=== PATIENT | male | born 1990 | race Asian ===

== ENCOUNTER → 2016-12-04 | Outpatient (CLI) | payer OTHER ==
[2016-12-04 16:14] LABS: BASO % 0.3 % (0.0-1.0); EOS # 0.1 K/mm3 (0.0-0.50); EOS % 0.7 % (0.0-3.0); LARGE UNSTAINED CELL # 0.1 K/mm3 (0.0-0.4); LYMPH % 14.2 % (24.0-44.0); MEAN CORPUSCULAR HEMOGLOBIN 27.6 pg (27.0-33.0); MEAN CORPUSCULAR VOLUME 83.7 fl (80.0-96.0); MONO # 0.6 K/mm3 (0.0-0.8); MONO % 4.2 % (0.0-5.0); NEUTROPHILS # 10.5 K/mm3 (1.8-7.7); NEUTROPHILS % 79.6 % (36.0-66.0); PLATELET COUNT, AUTOMATED 407 k/mm3 (150-450); WHITE BLOOD COUNT 13.2 K/mm3 (4.0-10.0)
[2016-12-04 16:37] LABS: ALBUMIN 4.8 GM/DL (3.2-5.2); ALBUMIN/GLOBULIN RATIO 1.37 (1.00-1.93); ALKALINE PHOSPHATASE 95 U/L (45-117); ALT/SGPT 92 U/L (12-78); ANION GAP 10 MEQ/L (8-16); AST/SGOT 42 U/L (15-37); BILIRUBIN,TOTAL 0.4 MG/DL (0.2-1.0); BLOOD UREA NITROGEN 10 MG/DL (7-18); CALCIUM LEVEL 11.3 MG/DL (8.5-10.1); CARBON DIOXIDE LEVEL 30 MEQ/L (21-32); CHLORIDE LEVEL 101 MEQ/L (98-107); CHOLESTEROL LEVEL 199 MG/DL (<200); CREATININE FOR GFR 1.13 MG/DL (0.70-1.30); GLOMERULAR FILTRATION RATE > 60.0 (>60); GLUCOSE, FASTING 94 MG/DL (70-105); POTASSIUM SERUM 4.3 MEQ/L (3.5-5.1); SODIUM LEVEL 141 MEQ/L (136-145); TOTAL PROTEIN 8.3 GM/DL (6.4-8.2); TRIGLYCERIDES LEVEL 346 MG/DL (<150)
== END ==
LOC: M LAB 15:15
PROVIDERS: ATTEND Nurse Practitioner Pediatrics
DX: F31.2 Bipolar disorder, current episode manic severe with psychotic features (principal)

== ENCOUNTER → 2017-01-05 | Outpatient (CLI) | payer OTHER ==
[2017-01-05 12:53] LABS: BASO % 0.2 % (0.0-1.0); EOS # 0.1 K/mm3 (0.0-0.50); EOS % 1.4 % (0.0-3.0); LARGE UNSTAINED CELL # 0.1 K/mm3 (0.0-0.4); LARGE UNSTAINED CELL % 0.9 % (0.0-4.0); LYMPH # 1.5 K/mm3 (1.5-6.5); LYMPH % 15.1 % (24.0-44.0); MEAN CORPUSCULAR HGB CONC 32.8 g/dl (32.0-36.5); MEAN CORPUSCULAR VOLUME 85.2 fl (80.0-96.0); MONO # 0.4 K/mm3 (0.0-0.8); MONO % 4.4 % (0.0-5.0); NEUTROPHILS # 7.2 K/mm3 (1.8-7.7); NEUTROPHILS % 77.9 % (36.0-66.0); PLATELET COUNT, AUTOMATED 357 k/mm3 (150-450); RED CELL DISTRIBUTION WIDTH 13.3 % (11.5-14.5); WHITE BLOOD COUNT 9.3 K/mm3 (4.0-10.0)
[2017-01-05 13:59] LABS: ALBUMIN 4.8 GM/DL (3.2-5.2); ALBUMIN/GLOBULIN RATIO 1.66 (1.00-1.93); ALKALINE PHOSPHATASE 81 U/L (45-117); ALT/SGPT 39 U/L (12-78); ANION GAP 8 MEQ/L (8-16); AST/SGOT 34 U/L (15-37); BILIRUBIN,TOTAL 0.4 MG/DL (0.2-1.0); BLOOD UREA NITROGEN 9 MG/DL (7-18); CALCIUM LEVEL 10.5 MG/DL (8.5-10.1); CARBON DIOXIDE LEVEL 30 MEQ/L (21-32); CHLORIDE LEVEL 103 MEQ/L (98-107); CHOLESTEROL LEVEL 131 MG/DL (<200); CREATININE FOR GFR 1.09 MG/DL (0.70-1.30); GLOMERULAR FILTRATION RATE > 60.0 (>60); GLUCOSE, FASTING 98 MG/DL (70-105); POTASSIUM SERUM 4.3 MEQ/L (3.5-5.1); SODIUM LEVEL 141 MEQ/L (136-145); TOTAL PROTEIN 7.7 GM/DL (6.4-8.2); TRIGLYCERIDES LEVEL 111 MG/DL (<150)
== END ==
LOC: M LAB 12:28
PROVIDERS: ATTEND Nurse Practitioner Pediatrics
DX: F31.2 Bipolar disorder, current episode manic severe with psychotic features (principal); J45.40 Moderate persistent asthma, uncomplicated; I10 Essential (primary) hypertension

== ENCOUNTER 2017-01-28 14:09 | Inpatient (IN) | payer OTHER ==
[~2017-01-28] VITALS: Ht 190.5 cm; Wt 104.5 kg
[2017-01-28] MEDS ORDERED: ZIPR40CA11 PO (15:37)
[2017-01-28] MEDS ORDERED: MONT10TA2 PO (15:37)
[2017-01-28] MEDS ORDERED: METH4PACK PO (15:37)
[2017-01-28] MEDS ORDERED: CHLO0.124 MT (15:37)
[2017-01-28] MEDS ORDERED: PERC5TAB6 PO (15:37)
[2017-01-28] MEDS ORDERED: METF-415 PO (15:37)
[2017-01-28] MEDS ORDERED: ALBU17IN INH (15:37)
[2017-01-28] MEDS ORDERED: LAMO200T54 PO (15:37)
[2017-01-28] MEDS ORDERED: MEMA1TAB PO (15:37)
[2017-01-28] MEDS ORDERED: IBUP80TA PO (15:37)
[2017-01-28] MEDS ORDERED: PREVINJ2 IM (15:42)
[2017-01-28 16:10] LABS: METHADONE URINE NEGATIVE (NEGATIVE)
[2017-01-28 17:00] LABS: MEAN CORPUSCULAR HGB CONC 33.2 g/dl (32.0-36.5); MEAN CORPUSCULAR VOLUME 84.4 fl (80.0-96.0); RED CELL DISTRIBUTION WIDTH 13.3 % (11.5-14.5); WHITE BLOOD COUNT 12.1 K/mm3 (4.0-10.0)
[2017-01-28 17:25] LABS: ALBUMIN 4.7 GM/DL (3.2-5.2); ALBUMIN/GLOBULIN RATIO 1.62 (1.00-1.93); ALKALINE PHOSPHATASE 74 U/L (45-117); ALT/SGPT 37 U/L (12-78); ANION GAP 9 MEQ/L (8-16); AST/SGOT 24 U/L (15-37); BILIRUBIN,DIRECT 0.2 MG/DL (0.0-0.2); BILIRUBIN,TOTAL 0.7 MG/DL (0.2-1.0); BLOOD UREA NITROGEN 14 MG/DL (7-18); CALCIUM LEVEL 9.9 MG/DL (8.5-10.1); CARBON DIOXIDE LEVEL 28 MEQ/L (21-32); CHLORIDE LEVEL 103 MEQ/L (98-107); CREATININE FOR GFR 0.91 MG/DL (0.70-1.30); GLOMERULAR FILTRATION RATE > 60.0 (>60); GLUCOSE, FASTING 94 MG/DL (70-105); POTASSIUM SERUM 4.1 MEQ/L (3.5-5.1); SODIUM LEVEL 140 MEQ/L (136-145); TOTAL PROTEIN 7.6 GM/DL (6.4-8.2)
[2017-01-28] MEDS ORDERED: INVE6TAB2 PO (18:18)
[2017-01-28] MEDS ORDERED: DRIS50002 PO (18:21)
[2017-01-28] MEDS ORDERED: VRAY4.5C PO (18:21)
[2017-01-28] MEDS ORDERED: SILD50TA PO (18:21)
[2017-01-28] MEDS ORDERED: FLUT11IN INH (18:21)
[2017-01-28] MEDS ORDERED: LISI10TA4 PO (18:21)
[2017-01-28 20:58] VITALS: BP 163/92
[2017-01-28] MEDS ORDERED: MAALOX 30 ML SUSP *UDC PO PRN (21:15)
[2017-01-28] MEDS ORDERED: MOM 30ML SUSPENSION UDC PO PRN (21:15)
[2017-01-29 06:09] VITALS: BP 150/81
[2017-01-29] MEDS ORDERED: PALIPERIDONE 6 MG ER TAB (INVEGA) PO SCH (09:00)
[2017-01-29] MEDS: ACETAMINOPHEN TAB 650MG DOSE (2X325MG) PO PRN (09:57)
--- NOTE | 2017-01-29 10:17 | HPEPDOC ---
Medical History and Physical Date of Admission Jan 28, 2017 at 18:19 History and Physical PCP: Tara Sutherland NP ATTENDING: Dr. Branden Hopkins HPI: 26yoM admitted to [facility] for bipolar disorder, being medically examined today. No acute medical complaints today. Denies any fevers, chills, weakness, fatigue, GILBERT, CP, SOB, cough, palpitations, abdominal pain, N/V/D or changes in bowel or bladder habits. PMHx: Asthma Hypertension Vitamin D deficiency Learning disability. 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 Unexpected deaths due to medical reasons: None. ROS: As noted in HPI, otherwise 11pt ROS of systems reviewed and unremarkable. PE: GEN: 26yoM, appears stated age. Well-nourished, well developed. No acute distress. Alert and oriented x 3. Anxious, asking about discharge. Slow to respond to some questions. HEENT: Normocephalic, atraumatic. Pupils are equal, round, and reactive to light. Extraocular movements are intact. No nystagmus appreciated. Sclera are nonicteric. Conjunctiva without injection. Nose midline. Nasal turbinates without bogginess. EACs both patent BL. TMs both visualized and casas with good cone of light, no bulging or erythema. No facial asymmetry. Moist mucous membranes. Dentition fair. Pharynx pink and moist, no cobblestoning. Neck supple , trachea midline. No lymphadenopathy or thyromegaly appreciated. CHEST: Regular rate and rhythm, +S1, +S2 LUNGS: Clear to auscultation bilaterally. No wheezes, rales, or rhonchi. Breathing appears symmetric and easy. Patient is speaking in full sentences. No accessory muscle use. ABD: Round, soft, non-tender, non-distended. +Bowel sounds throughout. No rebound or guarding. No costovertebral angle tenderness. EXT: Pulses 2+ bilaterally dorsalis pedis and radial. No lower extremity edema appreciated. SKIN: [place], dry, warm. Capillary refill <2sec. No rashes. NEURO: Alert and oriented x 3. Cranial nerves III-XII are intact. No focal deficits appreciated. EKG: pending. A&P: 26yoM admitted to [facility] for bipolar disorder 1. Psych. Plan per Psychiatry. Obtain baseline EKG to assure the safety of psychiatric medications as they can prolong the QT interval. 2. Asthma. Continue Singulair 10 mg daily. Continue Flovent HFA 110 g 2 puffs twice a day. Continue albuterol 2 puffs every 4 hours as needed. Patient follows with Dr. Velasquez as an outpatient. 3. Hypertension. Continue lisinopril 10 mg daily with hold parameters. 4. Follow up with PCP on discharge. 5. Vitamin D deficiency. Continue vitamin D supplement. Vitamin D level 01/05/17 60.1. 6. Leukocytosis. Possibly steroid effect as patient is finishing course of methylprednisolone for wisdom teeth extraction. Patient is asymptomatic. Afebrile. Recheck CBC. 7. Recent wisdom teeth extraction. Healing, no signs of infection at this time. Patient will finish last 2 days of methylprednisolone Dosepak. Continue with chlorhexidine 15 mL SS twice a day. Ibuprofen 800 mg 3 times a day as needed, oxycodone 5/325 one tablet every 6 hours as needed for pain. 8.Staff member Jose present throughout exam. Vital Signs Vital Signs Label Value Date Time Patient Temperature 98.5 degrees F 01/29/17 06 Temperature Source Core 01/29/17608 Pulse 101 01/29/17608 Respiratory Rate 16 bpm 01/29/17608 Pulse 92 01/28/172057 Blood Pressure Assessment 150/81 (104) 01/29/17 06 Bedside Pulse Oximetry 97 % 01/28/172057 Item Value Date Time Oxygen Delivery Method Room Air 01/28/172057 Laboratory Data Labs 24H Laboratory Tests 2 01/28/17 14:56: Urine Amphetamines Screen NEGATIVE, Urine Benzodiazepines Screen NEGATIVE, Urine Opiates Screen NEGATIVE, Urine Barbiturates Screen NEGATIVE, Urine Cannabinoids Screen POSITIVEH, Urine Cocaine Metabolite Screen NEGATIVE, Urine Methadone Screen NEGATIVE, Urine Phencyclidine Screen NEGATIVE 01/28/17 16:40: Acetaminophen Level < 2.0L, Aspartate Amino Transf (AST/SGOT) 24, Alanine Aminotransferase (ALT/SGPT) 37, Alkaline Phosphatase 74, Total Bilirubin 0.7, Direct Bilirubin 0.2, Albumin 4.7, Albumin/Globulin Ratio 1.62, Anion Gap 9, Calcium Level 9.9, Ethyl Alcohol Level < 0.003, Glomerular Filtration Rate > 60.0, Salicylates Level < 1.7L, Thyroid Stimulating Hormone (TSH) 0.921, Total Protein 7.6 CBC/BMP Laboratory Tests 01/28/17 16:40 Red Blood Count 5.47, Mean Corpuscular Volume 84.4, Mean Corpuscular Hemoglobin 28.0, Mean Corpuscular Hemoglobin Concent 33.2, Red Cell Distribution Width 13.3 Home Medications Scheduled (Lamotrigine ER) 200 Mg Tab 200 MG PO DAILY (Vraylar) 4.5 Mg Cap 4.5 MG PO DAILY Chlorhexidine Gluconate (Chlorhexadine Gluconate) 0.12 % Nancie 15 ML MT BID Fluticasone Propionate (Flovent Hfa 110 MCG) 120 Puff/12 Gm Aero 2 PUFF INH BID Lisinopril (Lisinopril) 10 Mg Tab 10 MG PO DAILY Memantine Hydrochloride (Memantine HCl) 5 Mg Tab 5 MG PO BID Metformin Hydrochloride (Metformin HCl ER) 1,000 Mg Tab 1,000 MG PO QPM Methylprednisolone (Methylprednisolone Dose P) 21 Ea Dspk 4 MG PO ASDIRECTED DOSEPAK TAPER DIRECTED, STARTED 01/24 FOR 6 DAYS Montelukast Sodium (Montelukast Sodium) 10 Mg Tab 10 MG PO QHS Paliperidone (Invega) 6 Mg Tab 6 MG PO QAM Vitamin D (Drisdol) 50,000 Unit Cap 50,000 UNIT PO QWEEK Ziprasidone Hydrochloride (Ziprasidone HCl) 40 Mg Cap 40 MG PO BID Scheduled PRN Albuterol Sulfate (Ventolin Hfa) 200 Puff/8 Gm Aers 2 PUFF INH QID PRN PRN SOB/ WHEEZING Ibuprofen (Ibuprofen) 800 Mg Tab 800 MG PO Q8H PRN PRN PAIN Oxycodone/Acetaminophen (Percocet 5-325 mg) 1 Tab Tab 1 TAB PO Q6H PRN PRN PAIN Sildenafil Citrate (Viagra) 50 Mg Tab 50 MG PO PRN ERECTILE DYSFUNCTION Allergies Coded Allergies: No Known Allergies (Unverified , 01/28/17) Echo Wiggins Jan 29, 2017 10:16
[2017-01-29] MEDS: LISINOPRIL 10 MG TAB PO SCH (12:50)
[2017-01-29] MEDS: methylPREDNISolone 4 MG TAB PO SCH ×2 (12:50→20:45)
[2017-01-29] MEDS: CHLORHEXIDINE GLUCONATE 0.12 % 15ML UDC (PERIDEX ORAL RINSE) MT SCH ×2 (12:51→20:42)
[2017-01-29] MEDS: FLUTICASONE HFA 110 MCG 12 GM INHALER (FLOVENT) INH SCH ×2 (12:56→20:45)
--- NOTE | 2017-01-29 13:54 | MHHPE ---
DATE OF ADMISSION: 01/28/2017 Storm Hernandez is a 26-year-old male who lives with his 67-year-old mother in [place]. Apparently he states he was "shooting at the snow with a paint ball gun." He states his medical problems have been asthma, vitamin D deficiency, high blood pressure and past surgery on his leg for club foot. He states it was his right leg, but he is pointing to his left leg. He states the muscles have not developed as well in that leg. PSYCHIATRIC HISTORY: The patient says he sees two people for psychiatric care, a Dr. Sandoval at [facility] and Susan Calderon LPN. He states he does not know his medications. We reviewed his medications and it is unclear which ones are active and which ones have been discontinued. He states the reason he sought psychiatric help was that he had a problem with bills and child support. He has three children from three different women. EDUCATION HISTORY: He has a GED. 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 LEGAL HISTORY: He states he has numerous misdemeanors regarding arguing with the mothers' of his children about bills and seeing his children. NEUROLOGIC HISTORY: Negative. He states he has an astigmatism. DRUG HISTORY: Negative. ALCOHOL HISTORY: Negative. He denies hallucinations, delusions, obsessions, compulsions and phobias. Speech is normal. No obvious thought disorder. Content iss mostly denial and minimization. No loose associations. Judgement and insight are poor. Poor memory for medications. Mood neutral, affect neutral. He states his mother brought him here, but then states his mother wants to bring him home. Information from emergency room mental health evaluation by Tanisha Dukes, Fast Food Supervisor, states "the patient was reportedly outside with a paint ball gun, complains of it being mistaken for a real gun as he went up and down the streets. Reported to be decompensating, paranoid and noncompliant with medications, with extreme anger outbursts at home. The patient complained he was just having a bad day. He did talk about having frequent nightmares. Complains of his medications not working and causing him to gain weight. He appeared guarded and stating in the emergency room that everything was fine. He stated medications caused him to gain weight and he does not like to take them. [facility] Apparently, his mother is older and supported the patient and has cared for him for years. She reports that she is afraid of the patient due to his behaviors, which include breaking things, punching pino. He has changed his cell phone number several times because he believes people are after him. He does not admit to paranoid ideation or persecutory ideas and appears as he did in the emergency room, to minimize his symptoms. It was unclear from the medication list which ones are active and which have been cancelled and we will be getting information from Susan Antoniobeverly as to what medications he is actively taking. DIAGNOSIS: Rule out bipolar disorder with psychotic features. Plan. Continue Invega and possibly raise dose. Seek further information. MTDD
[2017-01-29 18:00] VITALS: BP 142/88
[2017-01-29] MEDS: MONTELUKAST 10 MG TAB PO SCH (20:44)
[2017-01-29] MEDS: metFORMIN XR 500MG TAB *GLUCOPHAGE XR PO SCH (20:46)
[2017-01-29] MEDS: PERCOCET 5MG/325MG TAB PO PRN (20:49)
[2017-01-30] MEDS: IBUPROFEN 800 MG TAB PO PRN (06:12)
[2017-01-30 06:32] VITALS: BP 129/75
[2017-01-30 07:24] LABS: MEAN CORPUSCULAR HEMOGLOBIN 28.2 pg (27.0-33.0); MEAN CORPUSCULAR HGB CONC 33.2 g/dl (32.0-36.5); MEAN CORPUSCULAR VOLUME 84.8 fl (80.0-96.0); RED CELL DISTRIBUTION WIDTH 13.4 % (11.5-14.5); WHITE BLOOD COUNT 11.1 K/mm3 (4.0-10.0)
[2017-01-30] MEDS ORDERED: methylPREDNISolone 4 MG TAB PO ONE (07:30)
[2017-01-30] MEDS: FLUTICASONE HFA 110 MCG 12 GM INHALER (FLOVENT) INH SCH ×2 (08:20→21:21)
[2017-01-30] MEDS: LISINOPRIL 10 MG TAB PO SCH (08:21)
[2017-01-30] MEDS: ALBUTEROL 90 MCG/ACT 8GM HFA INHALER INH PRN ×2 (08:22→17:56)
[2017-01-30] MEDS ORDERED: VITAMIN D 50,000 UNITS CAPSULE (ERGOCALCIFEROL 1.25MG) PO SCH (09:00)
[2017-01-30] MEDS: PALIPERIDONE 3 MG ER TAB (INVEGA) PO SCH (09:16)
[2017-01-30] MEDS: CHLORHEXIDINE GLUCONATE 0.12 % 15ML UDC (PERIDEX ORAL RINSE) MT SCH ×2 (09:17→21:21)
--- NOTE | 2017-01-30 09:42 | IPN ---
DATE: 01/30/2017 Storm Hernandez is a 26-year-old male who lives with his 67-year-old mother in [place]. According to him yesterday, his only difficulty was the shooting at the snow with a paint ball gun. Further information from family and emergency room indicates that he was threatening and yelling at his mother and possibly, though he does not admit it, breaking things in the household. His mother was so frightened that she moved out of the house. He has a long history of being treated for bipolar disorder. He has a history of multiple antipsychotic medications and injections. He is presently on paliperidone (Invega) 6 mg. I have increased it to 9 mg. The patient does not know his medications. Interestingly, he was also prescribed presently Lamictal and Namenda, which is an anti dementia medication. Past history of use of Geodon, Vraylar, Invega Sustenna, Latuda, Abilify. The diagnosis that he has cared has been a bipolar 1 disorder with most recently manic episodes. The patient agreed with me, after much encouragement and multiple questions, in fact, that he looses his temper at home and he has been treated for "getting mad." I informed we were increasing his Invega to 9mg. I have discussed his case with discharge planning that we need more information from his therapist as to a superintendent marine oil terminal plan for this gentleman. MENTAL STATUS: Speech was normal. Thought processes showed no abnormalities. No loose associations. No psychotic thoughts. Judgment and insight poor. Orientation is full. Remote memory is not intact. The patient does not know his medications. Attention and concentration is fair. No disturbances of language. Full fund of knowledge. Mood is neutral. Affect is neutral. PLAN: At this time, I have increased his Invega to 9 mg and will be discussing further his longer term treatment. He will be restarted on his Lamictal. MTDD
[2017-01-30 18:00] VITALS: BP 140/88
[2017-01-30] MEDS: PERCOCET 5MG/325MG TAB PO PRN (19:23)
[2017-01-30] MEDS: MONTELUKAST 10 MG TAB PO SCH (21:22)
[2017-01-30] MEDS: lamoTRIgine 100MG TAB PO SCH (21:22)
[2017-01-30] MEDS: metFORMIN XR 500MG TAB *GLUCOPHAGE XR PO SCH (21:22)
--- NOTE | 2017-01-30 22:17 | ECGEPIP ---
Stationary ECG Study [facility] Test Date: 2017-01-29 Pat Name: ALDO YIP Department: Room: [place] [address] Gender: M [employer] Route Aide: : 1990 Requested By: Echo Wiggins Order Number: [id number] Reading MD: Delroy Griggs Measurements Intervals [place] Rate: 85 P: 56 NM: 161 QRS: 50 QRSD: 102 T: 34 QT: 349 QTc: 415 Interpretive Statements Normal sinus rhythm Normal EKG Comparison tracing not on file Electronically Signed On 01-30-2017 22:17:34 EDT by Delroy Griggs
[2017-01-31 06:00] VITALS: BP 102/68
[2017-01-31] MEDS: ALBUTEROL 90 MCG/ACT 8GM HFA INHALER INH PRN (08:33)
[2017-01-31] MEDS: LISINOPRIL 10 MG TAB PO SCH (09:02)
[2017-01-31] MEDS: FLUTICASONE HFA 110 MCG 12 GM INHALER (FLOVENT) INH SCH ×2 (09:03→21:16)
[2017-01-31] MEDS: CHLORHEXIDINE GLUCONATE 0.12 % 15ML UDC (PERIDEX ORAL RINSE) MT SCH ×2 (09:03→21:16)
[2017-01-31] MEDS: PALIPERIDONE 3 MG ER TAB (INVEGA) PO SCH (09:03)
[2017-01-31] MEDS: ACETAMINOPHEN TAB 650MG DOSE (2X325MG) PO PRN (13:12)
[2017-01-31 18:00] VITALS: BP 136/84
--- NOTE | 2017-01-31 18:06 | IPN ---
DATE: 01/31/2017 Day #4 of inpatient hospitalization. TREATMENT: The patient is currently being prescribed Lamictal 100 mg at bedtime and paliperidone 9 mg orally daily. He is seen today and his treatment reviewed. He is a 26-year-old who reports being admitted due to "arguing with my mother and got out of control". He reports today that, "I'm being good, I just want to be home." He presents with no new problems. Nursing reports indicate that he has been compliant with his treatment and so far has not been a management problem. He did not exhibit any behaviors on the unit suggestive of being a danger to self or to others. He has been tolerating his current medications and presents with no untoward effect. OBSERVATION: His vital signs are stable. He is alert, calm, cooperative, and adequately groomed. His thought process is coherent. No overt delusional themes or hallucination. His mood is less depressed, and affect appropriate. He denies active thoughts, plan, or intent of suicide or homicide. No evidence of extrapyramidal symptoms (EPS) or tardive dyskinesia. ASSESSMENT: Patient is tolerating and responding well to current treatment and does not appear to be at imminent risk of danger to self or to others. Further inpatient stay, however, is required in order to adequately adjust his medications. PLAN: He will be continued on the current treatments with ongoing reviews. AYLIN
[2017-01-31] MEDS: MONTELUKAST 10 MG TAB PO SCH (21:16)
[2017-01-31] MEDS: traZODone 50 MG TAB PO PRN (21:16)
[2017-01-31] MEDS: lamoTRIgine 100MG TAB PO SCH (21:16)
[2017-01-31] MEDS: metFORMIN XR 500MG TAB *GLUCOPHAGE XR PO SCH (21:18)
[2017-01-31] MEDS: IBUPROFEN 800 MG TAB PO PRN (22:50)
[2017-02-01 06:39] VITALS: BP 145/65
[2017-02-01] MEDS: LISINOPRIL 10 MG TAB PO SCH (09:02)
[2017-02-01] MEDS: FLUTICASONE HFA 110 MCG 12 GM INHALER (FLOVENT) INH SCH ×2 (09:02→21:06)
[2017-02-01] MEDS: PALIPERIDONE 3 MG ER TAB (INVEGA) PO SCH (09:02)
[2017-02-01] MEDS: CHLORHEXIDINE GLUCONATE 0.12 % 15ML UDC (PERIDEX ORAL RINSE) MT SCH ×2 (09:02→21:07)
[2017-02-01] MEDS: ACETAMINOPHEN TAB 650MG DOSE (2X325MG) PO PRN (09:27)
[2017-02-01] MEDS: ALBUTEROL 90 MCG/ACT 8GM HFA INHALER INH PRN (14:51)
[2017-02-01 18:00] VITALS: BP 151/70
[2017-02-01] MEDS: IBUPROFEN 800 MG TAB PO PRN (20:39)
--- NOTE | 2017-02-01 20:57 | IPN ---
DATE: 02/01/2017 TREATMENT: The patient is seen and his treatment reviewed. Today is his fifth day of inpatient hospital admission and he remains on Lamictal 100 mg at bedtime and paliperidone 9 mg orally daily. He reports that he has been taking his medications and experiencing no side effects. He states, "I am doing good, I think that I am ready to go home." He denies any form of hallucinations at this time and reports his mood as being good. No incidents involving the patient in the past 24 hours. OBSERVATION: He is calm, cooperative, alert and adequately oriented. His vital signs are stable. His mood is notably less depressed and no gross psychotic features evident. He denies suicidal or homicidal ideation. No evidence of medication related adverse events. ASSESSMENT: He continue to tolerate and respond well to treatment and presently does not appear to be a danger to self or to others. He has improved significantly and will be reassessed in the next 24 hours. If stable, he will be scheduled for discharge with appropriate followup plan. PLAN: Current treatment will be continued. AYLIN
[2017-02-01] MEDS: metFORMIN XR 500MG TAB *GLUCOPHAGE XR PO SCH (21:07)
[2017-02-01] MEDS: lamoTRIgine 100MG TAB PO SCH (21:07)
[2017-02-01] MEDS: MONTELUKAST 10 MG TAB PO SCH (21:07)
[2017-02-01] MEDS: traZODone 50 MG TAB PO PRN (21:07)
[2017-02-02 06:52] VITALS: BP 145/70
[2017-02-02] MEDS: CHLORHEXIDINE GLUCONATE 0.12 % 15ML UDC (PERIDEX ORAL RINSE) MT SCH ×2 (09:06→21:05)
[2017-02-02] MEDS: PALIPERIDONE 3 MG ER TAB (INVEGA) PO SCH (09:07)
[2017-02-02] MEDS: LISINOPRIL 10 MG TAB PO SCH (09:07)
[2017-02-02] MEDS: FLUTICASONE HFA 110 MCG 12 GM INHALER (FLOVENT) INH SCH ×2 (09:07→21:07)
[2017-02-02] MEDS: ALBUTEROL 90 MCG/ACT 8GM HFA INHALER INH PRN (09:07)
[2017-02-02] MEDS: IBUPROFEN 800 MG TAB PO PRN ×2 (09:30→17:57)
--- NOTE | 2017-02-02 12:51 | IPN ---
DATE: 02/02/2017 Storm Hernandez continues on Lamictal 100 mg at night, Invega 9 mg in the morning, metformin 1000 mg at night, albuterol, Percocet as needed for pain, Lisinopril, and trazodone as needed for insomnia. Storm Hernandez has behaved well during the weekend and has demonstrated no difficulties. No swings of mood. No agitation. I have put in a call to his outpatient therapist to get more information and to determine her long-term plan for this patient. The patient's speech is normal rate and rhythm. No disturbances of thought process. No loose associations. No abnormal or psychotic thoughts. Judgment and insight are fair. He is fully oriented. No disturbances of recent and remote memory. No disturbance of attention and concentration. No language disorders. Full fund of knowledge. Mood is neutral. Affect is neutral. DIAGNOSIS: Bipolar disorder with psychotic features. More information is needed prior to discharge.
[2017-02-02 18:00] VITALS: BP 140/86
[2017-02-02] MEDS: MONTELUKAST 10 MG TAB PO SCH (21:05)
[2017-02-02] MEDS: lamoTRIgine 100MG TAB PO SCH (21:05)
[2017-02-02] MEDS: metFORMIN XR 500MG TAB *GLUCOPHAGE XR PO SCH (21:06)
[2017-02-03 06:06] VITALS: BP 131/65
[2017-02-03 09:25] VITALS: BP 140/90
[2017-02-03] MEDS: PALIPERIDONE 3 MG ER TAB (INVEGA) PO SCH (09:25)
[2017-02-03] MEDS: LISINOPRIL 10 MG TAB PO SCH (09:25)
[2017-02-03] MEDS: FLUTICASONE HFA 110 MCG 12 GM INHALER (FLOVENT) INH SCH (09:25)
[2017-02-03] MEDS: CHLORHEXIDINE GLUCONATE 0.12 % 15ML UDC (PERIDEX ORAL RINSE) MT SCH (09:26)
[2017-02-03] MEDS ORDERED: TRAZO50TA PO (10:24)
[2017-02-03] MEDS ORDERED: LAMO10TA PO (10:24)
[2017-02-03] MEDS ORDERED: PALI1TAB2 PO (10:24)
[2017-02-03] MEDS: IBUPROFEN 800 MG TAB PO PRN (10:26)
[2017-02-03] MEDS: ALBUTEROL 90 MCG/ACT 8GM HFA INHALER INH PRN (11:42)
--- NOTE | 2017-02-03 16:43 | MHDS ---
DATE OF ADMISSION: 01/28/2017 DATE OF DISCHARGE: 02/03/2017 Storm Hernandez is a 26-year-old male who lives with his 67-year-old mother in [place]. Apparently he states he was "shooting at the snow with a paintball gun." He states his medical problems have been asthma, vitamin D deficiency, high blood pressure. He had surgery on his leg for a club foot, he states it was his right leg, but pointed to his left leg. He has been very concerned about his physical status and in conversing with his psychiatric nurse outpatient, this has caused significant problems with him continuing injectable medications. He is treated by a Dr. Sandoval at [facility] and ADRIANA Sanchez. We reviewed his medications. He states the reason he has ever sought psychiatric help is that he has problems with bills and child support. He has three children from three different women. EDUCATIONAL HISTORY: He has a GED. 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 LEGAL HISTORY: Has numerous misdemeanors regarding arguing with the mothers of his children about bills. NEUROLOGICAL HISTORY: Negative. DRUG HISTORY: Negative. ALCOHOL HISTORY: Negative. It was reported in the emergency room that the patient was reportedly outside with a paintball gun and complained of it being mistaken for a real gun as he went up and down the streets. It is reported that he has been decompensating and paranoid, noncompliant with medications, with extreme anger outbursts at home. The patient claims he was "just having a bad day." Further reports indicate he has lost his temper significantly at home and has been destructive of items. He denies this and states he was just yelling. His main focus is going to the [facility] and working out. Admission diagnosis was bipolar disorder with psychotic features. The patient was placed on Invega 9 mg daily. He was seen by Echo Wiggins who noted that he had leukocytosis, possibly a steroid effect as he was finishing a course of methylprednisone for wisdom tooth extraction, and that the patient had hypertension and was presently on lisinopril. He also had asthma and was continued on Singulair, Flovent, and albuterol. COURSE ON THE UNIT: Patient agreed finally with me that he loses his temper at home, after previously denying that there were any episodes at home and that he was unable to explain the cause of hospitalization. Past history indicated use of Geodon, Vraylar, Invega Sustenna, Latuda, and Abilify. He was also being given Lamictal at bedtime. He continued to be compliant with treatment throughout his stay and did not indicate or suggest a danger to self or others. He was seen through the weekend by Dr. Denson who also felt the patient was ready for discharge. He continued on Lamictal 100 mg at night, Invega 9 mg in the morning, metformin 1000 mg at night, albuterol, Percocet as needed for pain, lisinopril, and trazodone. It was felt both by his family and his therapist, Susan Calderon, that he needed to seek independent living since there were numerous difficulties with him living with his mother. He was discharged to home with Lamictal 100 mg nightly, paliperidone ER 9 mg in the morning, trazodone 50 mg for sleep. On discharge, his speech was normal, thought process showed some poverty. There were no loose associations. He demonstrated no abnormal or psychotic thoughts. His judgment and insight were poor. His orientation in three spheres was present. Recent and remote memory were intact. No difficulties with attention and concentration. His language was normal. His fund of knowledge was full. Mood was good and affect was neutral. DISCHARGE DIAGNOSIS: Bipolar disorder, manic type.
== END 2017-02-03 14:45 | disposition home or self-care (01) | DRG 753 ==
LOC: M ED 16:12 → M ED INP 18:19 → M PSY 19:54
PROVIDERS: ADMIT Psychiatry & Neurology Psychiatry; ATTEND Psychiatry & Neurology Child & Adolescent Psychiatry
DX: F31.9 Bipolar disorder, unspecified (principal); E55.9 Vitamin D deficiency, unspecified; I10 Essential (primary) hypertension; E11.9 Type 2 diabetes mellitus without complications; J45.909 Unspecified asthma, uncomplicated

== ENCOUNTER → 2017-06-04 | Outpatient (REF) | payer OTHER ==
[~2017-06-04] MED LIST: ALBU17IN INH; CHLO0.124 MT; DRIS50002 PO; FLUT11IN INH; IBUP80TA PO; INVE6TAB3 PO; LAMO10TA PO; LAMO200T54 PO; LISI10TA4 PO; MEMA1TAB PO; METF-415 PO; METH4PACK PO; MONT10TA2 PO; PALI1TAB2 PO; PERC5TAB12 PO; PREVINJ2 IM; SILD50TA PO; TRAZO50TA PO; VRAY4.5C PO; ZIPR40CA11 PO
[2017-06-04 14:51] LABS: ALBUMIN 4.3 GM/DL (3.2-5.2); ALBUMIN/GLOBULIN RATIO 1.54 (1.00-1.93); ALKALINE PHOSPHATASE 70 U/L (45-117); ALT/SGPT 47 U/L (12-78); ANION GAP 11 MEQ/L (8-16); AST/SGOT 33 U/L (15-37); BILIRUBIN,TOTAL 0.4 MG/DL (0.2-1.0); BLOOD UREA NITROGEN 5 MG/DL (7-18); CALCIUM LEVEL 9.4 MG/DL (8.5-10.1); CARBON DIOXIDE LEVEL 25 MEQ/L (21-32); CHLORIDE LEVEL 103 MEQ/L (98-107); CHOLESTEROL LEVEL 103 MG/DL (<200); CREATININE FOR GFR 0.94 MG/DL (0.70-1.30); GLOMERULAR FILTRATION RATE > 60.0 (>60); GLUCOSE, FASTING 110 MG/DL (70-105); POTASSIUM SERUM 3.7 MEQ/L (3.5-5.1); SODIUM LEVEL 139 MEQ/L (136-145); TOTAL PROTEIN 7.1 GM/DL (6.4-8.2); TRIGLYCERIDES LEVEL 130 MG/DL (<150)
== END ==
LOC: M LAB REF 13:28
PROVIDERS: ATTEND Family Medicine Addiction Medicine
DX: I10 Essential (primary) hypertension (principal)

== ENCOUNTER 2017-12-26 08:51 | Inpatient (IN) | payer OTHER ==
[2017-12-26 09:11] LABS: HEMATOCRIT 44.2 % (42.0-52.0); HEMOGLOBIN 14.6 g/dl (14.0-18.0); MEAN CORPUSCULAR HEMOGLOBIN 27.8 pg (27.0-33.0); MEAN CORPUSCULAR VOLUME 84.2 fl (80.0-96.0); PLATELET COUNT, AUTOMATED 382 10^3/uL (150-450); RED BLOOD COUNT 5.25 10^6/uL (4.30-6.10); RED CELL DISTRIBUTION WIDTH 13.1 % (11.5-14.5)
[2017-12-26 09:31] LABS: AMPHETAMINES LEVEL URINE NEGATIVE (NEGATIVE); BARBITURATES URINE NEGATIVE (NEGATIVE); BENZODIAZEPINES URINE NEGATIVE (NEGATIVE); CANNABINOIDS URINE POSITIVE (NEGATIVE); COCAINE METABOLITE URINE NEGATIVE (NEGATIVE); METHADONE URINE NEGATIVE (NEGATIVE); OPIATES URINE NEGATIVE (NEGATIVE); PHENCYCLIDINE URINE NEGATIVE (NEGATIVE)
[2017-12-26 09:37] LABS: ALBUMIN 4.5 GM/DL (3.2-5.2); ALBUMIN/GLOBULIN RATIO 1.55 (1.00-1.93); ALKALINE PHOSPHATASE 77 U/L (45-117); ALT/SGPT 57 U/L (12-78); ANION GAP 6 MEQ/L (8-16); AST/SGOT 34 U/L (7-37); BILIRUBIN,DIRECT 0.1 MG/DL (0.0-0.2); BILIRUBIN,TOTAL 0.4 MG/DL (0.2-1.0); BLOOD UREA NITROGEN 10 MG/DL (7-18); CALCIUM LEVEL 9.5 MG/DL (8.5-10.1); CARBON DIOXIDE LEVEL 28 MEQ/L (21-32); CHLORIDE LEVEL 106 MEQ/L (98-107); CREATININE FOR GFR 1.09 MG/DL (0.70-1.30); ETHYL ALCOHOL (ETHANOL) < 0.003 % (0.000-0.010); GLOMERULAR FILTRATION RATE > 60.0 (>60); GLUCOSE, FASTING 119 MG/DL (70-100); POTASSIUM SERUM 3.8 MEQ/L (3.5-5.1); SALICYLATE LEVEL < 1.7 MG/DL (5.0-30.0); SODIUM LEVEL 140 MEQ/L (136-145); THYROID STIMULATING HORMONE 0.678 uIU/ML (0.358-3.740); TOTAL PROTEIN 7.4 GM/DL (6.4-8.2)
[2017-12-26 09:43] LABS: ACETAMINOPHEN LEVEL < 2.0 UG/ML (10.0-30.0)
[2017-12-26] MEDS ORDERED: QUEtiapine FUMARATE 100 MG TAB PO (15:15)
[2017-12-26] MEDS ORDERED: MOM 30ML SUSPENSION UDC PO (15:15)
[2017-12-26] MEDS ORDERED: MAALOX 30 ML SUSP *UDC PO (15:15)
[2017-12-26] MEDS: ACETAMINOPHEN TAB 650MG DOSE (2X325MG) PO (15:17)
[2017-12-26] MEDS ORDERED: ALBUTEROL SULFATE 2.5 MG/0.5 ML INH NEB SOLN INH (16:00)
[2017-12-26 17:28] LABS: BEDSIDE GLUCOSE 91 MG/DL (70-105)
[2017-12-26] MEDS: metFORMIN (GLUCOPHAGE) 500 MG TAB PO (18:23)
[2017-12-26] MEDS: LISINOPRIL 10 MG TAB PO (20:36)
[2017-12-26] MEDS: lamoTRIgine 100MG TAB PO (20:36)
[2017-12-26] MEDS: MEMANTINE 5MG TABLET (NAMENDA) PO (20:36)
[2017-12-26] MEDS: MONTELUKAST 10 MG TAB PO (20:37)
[2017-12-26] MEDS: FLUTICASONE HFA 110 MCG 12 GM INHALER (FLOVENT) INH (20:37)
[2017-12-26] MEDS: QUEtiapine FUMARATE 100 MG TAB PO (20:37)
[2017-12-27] MEDS: metFORMIN (GLUCOPHAGE) 500 MG TAB PO ×2 (08:14→18:17)
[2017-12-27] MEDS: MEMANTINE 5MG TABLET (NAMENDA) PO ×2 (08:14→20:10)
[2017-12-27] MEDS: LEUCOVORIN 5 MG TAB PO (08:14)
[2017-12-27] MEDS: lamoTRIgine 100MG TAB PO ×2 (08:14→20:13)
[2017-12-27] MEDS: PALIPERIDONE 3 MG ER TAB (INVEGA) PO (08:14)
[2017-12-27] MEDS: FLUTICASONE HFA 110 MCG 12 GM INHALER (FLOVENT) INH ×2 (08:24→20:15)
[2017-12-27] MEDS: ALBUTEROL 90 MCG/ACT 8GM HFA INHALER INH (08:25)
[2017-12-27] MEDS: ACETAMINOPHEN TAB 650MG DOSE (2X325MG) PO (16:33)
[2017-12-27] MEDS: MONTELUKAST 10 MG TAB PO (20:10)
[2017-12-27] MEDS: QUEtiapine FUMARATE 100 MG TAB PO (20:10)
[2017-12-27] MEDS: LISINOPRIL 10 MG TAB PO (20:12)
[2017-12-28 06:49] LABS: BEDSIDE GLUCOSE 105 MG/DL (70-105)
[2017-12-28 07:06] LABS: ESTIMATED AVERAGE GLUCOSE 117 MG/DL (60-110); HEMOGLOBIN A1c 5.7 %
[2017-12-28] MEDS: LEUCOVORIN 5 MG TAB PO (08:16)
[2017-12-28] MEDS: FLUTICASONE HFA 110 MCG 12 GM INHALER (FLOVENT) INH ×2 (08:16→20:07)
[2017-12-28] MEDS: lamoTRIgine 100MG TAB PO ×2 (08:16→20:02)
[2017-12-28] MEDS: PALIPERIDONE 3 MG ER TAB (INVEGA) PO (08:16)
[2017-12-28] MEDS: MEMANTINE 5MG TABLET (NAMENDA) PO ×2 (08:16→20:02)
[2017-12-28] MEDS: ALBUTEROL 90 MCG/ACT 8GM HFA INHALER INH ×2 (08:16→15:17)
[2017-12-28] MEDS: metFORMIN (GLUCOPHAGE) 500 MG TAB PO ×2 (08:17→18:03)
[2017-12-28 17:37] LABS: BEDSIDE GLUCOSE 102 MG/DL (70-105)
[2017-12-28] MEDS: QUEtiapine FUMARATE 100 MG TAB PO (20:02)
[2017-12-28] MEDS: LISINOPRIL 10 MG TAB PO (20:06)
[2017-12-28] MEDS: MONTELUKAST 10 MG TAB PO (20:06)
[2017-12-29 00:06] LABS: LAMOTRIGINE (LAMICTAL) 2.6 ug/mL (2.0-20.0)
[2017-12-29] MEDS: ACETAMINOPHEN TAB 650MG DOSE (2X325MG) PO ×2 (06:43→20:19)
[2017-12-29 06:44] LABS: BEDSIDE GLUCOSE 127 MG/DL (70-105)
[2017-12-29] MEDS: metFORMIN (GLUCOPHAGE) 500 MG TAB PO ×2 (08:21→17:12)
[2017-12-29] MEDS: LEUCOVORIN 5 MG TAB PO (08:21)
[2017-12-29] MEDS: FLUTICASONE HFA 110 MCG 12 GM INHALER (FLOVENT) INH ×2 (08:21→20:14)
[2017-12-29] MEDS: MEMANTINE 5MG TABLET (NAMENDA) PO ×2 (08:21→20:13)
[2017-12-29] MEDS: PALIPERIDONE 3 MG ER TAB (INVEGA) PO (08:22)
[2017-12-29] MEDS: PALIPERIDONE PALMITATE 234 MG/1.5 ML INJ (INVEGA SUSTENNA)(J2426) IM (08:22)
[2017-12-29] MEDS: lamoTRIgine 100MG TAB PO ×2 (08:22→20:14)
[2017-12-29 16:57] LABS: BEDSIDE GLUCOSE 90 MG/DL (70-105)
[2017-12-29] MEDS: MONTELUKAST 10 MG TAB PO (20:13)
[2017-12-29] MEDS: QUEtiapine FUMARATE 100 MG TAB PO (20:15)
[2017-12-29] MEDS: LISINOPRIL 10 MG TAB PO (20:16)
[2017-12-30 06:27] LABS: BEDSIDE GLUCOSE 94 MG/DL (70-105)
[2017-12-30] MEDS: ALBUTEROL 90 MCG/ACT 8GM HFA INHALER INH (06:46)
[2017-12-30] MEDS: metFORMIN (GLUCOPHAGE) 500 MG TAB PO ×2 (08:14→18:12)
[2017-12-30] MEDS: PALIPERIDONE 3 MG ER TAB (INVEGA) PO (08:14)
[2017-12-30] MEDS: FLUTICASONE HFA 110 MCG 12 GM INHALER (FLOVENT) INH ×2 (08:14→20:20)
[2017-12-30] MEDS: lamoTRIgine 100MG TAB PO ×2 (08:14→20:20)
[2017-12-30] MEDS: MEMANTINE 5MG TABLET (NAMENDA) PO ×2 (08:15→20:19)
[2017-12-30] MEDS: LEUCOVORIN 5 MG TAB PO (08:15)
[2017-12-30] MEDS: MONTELUKAST 10 MG TAB PO (20:19)
[2017-12-30] MEDS: LISINOPRIL 10 MG TAB PO (20:20)
[2017-12-30] MEDS: QUEtiapine FUMARATE 100 MG TAB PO (20:20)
[2017-12-30 20:30] LABS: BEDSIDE GLUCOSE 122 MG/DL (70-105)
[2017-12-31 06:17] LABS: BEDSIDE GLUCOSE 93 MG/DL (70-105)
[2017-12-31] MEDS: FLUTICASONE HFA 110 MCG 12 GM INHALER (FLOVENT) INH (08:01)
[2017-12-31] MEDS: MEMANTINE 5MG TABLET (NAMENDA) PO (08:02)
[2017-12-31] MEDS: PALIPERIDONE 3 MG ER TAB (INVEGA) PO (08:02)
[2017-12-31] MEDS: lamoTRIgine 100MG TAB PO (08:02)
[2017-12-31] MEDS: LEUCOVORIN 5 MG TAB PO (08:02)
[2017-12-31] MEDS: metFORMIN (GLUCOPHAGE) 500 MG TAB PO (08:02)
[2017-12-31] MEDS: ACETAMINOPHEN TAB 650MG DOSE (2X325MG) PO (11:30)
[2017-12-31] MEDS: ALBUTEROL 90 MCG/ACT 8GM HFA INHALER INH (13:14)
[2018-01-01] MEDS ORDERED: VITAMIN D 50,000 UNITS CAPSULE (ERGOCALCIFEROL 1.25MG) PO (09:00)
== END 2017-12-31 13:49 | disposition home or self-care (01) | DRG 753 ==
LOC: M PSY 12-27 14:24 → M ED 08:51 → M ED INP 15:08 → M PSY 16:55
DX: F31.9 Bipolar disorder, unspecified (principal); E55.9 Vitamin D deficiency, unspecified; E11.9 Type 2 diabetes mellitus without complications; F12.10 Cannabis abuse, uncomplicated; F19.94 Other psychoactive substance use, unspecified with psychoactive substance-induced mood disorder; Z79.899 Other long term (current) drug therapy; Z88.8 Allergy status to other drugs, medicaments and biological substances; J45.909 Unspecified asthma, uncomplicated; F81.9 Developmental disorder of scholastic skills, unspecified; I10 Essential (primary) hypertension

== ENCOUNTER → 2018-08-19 | Outpatient (REF) | payer MEDICAID ==
[2018-08-19 13:12] LABS: ALBUMIN 4.6 GM/DL (3.2-5.2); ALBUMIN/GLOBULIN RATIO 1.64 (1.00-1.93); ALKALINE PHOSPHATASE 84 U/L (45-117); ALT/SGPT 45 U/L (12-78); ANION GAP 6 MEQ/L (8-16); AST/SGOT 24 U/L (7-37); BILIRUBIN,TOTAL 0.6 MG/DL (0.2-1.0); BLOOD UREA NITROGEN 12 MG/DL (7-18); CALCIUM LEVEL 9.4 MG/DL (8.5-10.1); CARBON DIOXIDE LEVEL 29 MEQ/L (21-32); CHLORIDE LEVEL 104 MEQ/L (98-107); CHOLESTEROL LEVEL 155 MG/DL (<200); CHOLESTEROL RISK RATIO 2.719 (<5); CREATININE FOR GFR 1.09 MG/DL (0.70-1.30); GLOMERULAR FILTRATION RATE > 60.0 (>60); GLUCOSE, FASTING 99 MG/DL (70-100); HDL CHOLESTEROL 57 MG/DL (>40); LDL CHOLESTEROL 81 MG/DL (<100); NON-HDL-C 98 MG/DL; POTASSIUM SERUM 4.4 MEQ/L (3.5-5.1); SODIUM LEVEL 139 MEQ/L (136-145); THYROID STIMULATING HORMONE 0.836 uIU/ML (0.358-3.740); TOTAL PROTEIN 7.4 GM/DL (6.4-8.2); TRIGLYCERIDES LEVEL 87 MG/DL (<150)
== END ==
LOC: M LAB REF 12:19
DX: I10 Essential (primary) hypertension (principal)

== ENCOUNTER 2019-07-14 15:14 | Emergency (ER) | payer MEDICAID ==
[~2019-07-14] VITALS: Ht 190.5 cm; Wt 105.0 kg
[2019-07-14 15:14] VITALS: BP 134/85
[~2019-07-14 15:14] MED LIST changes: +ACET500T15 PO; +ALB2.5NEB INH; +ARNU1INH INH; -DRIS50002 PO; +DRIS50003 PO; +INVE156I IM; +LAMO100T PO; +LAMO100T80 PO; -LAMO10TA PO; +LEUC25TA2 PO; +METF-839 PO; +PALI1TAB4 PO; +SERO1TAB PO; +TRAZ1TAB10 PO; -TRAZO50TA PO
[2019-07-14] MEDS ORDERED: predniSONE 20 MG TAB PO ONE (17:15)
[2019-07-14] MEDS ORDERED: PRED20TA PO (17:15)
[2019-07-14] MEDS ORDERED: IPRATROPIUM 0.5MG/ALBUTEROL 2.5MG INH SOL UD 3ML (DUONEB)(J7620) NEB ONE (17:15)
[2019-07-14] MEDS ORDERED: PROV108A INH (17:16)
== END 2019-07-14 17:50 | disposition home or self-care (01) ==
LOC: M ED 15:14
DX: J06.9 Acute upper respiratory infection, unspecified (principal); J45.909 Unspecified asthma, uncomplicated; R07.0 Pain in throat; Z88.8 Allergy status to other drugs, medicaments and biological substances

== ENCOUNTER 2019-11-29 22:36 | Inpatient (IN) | payer MEDICAID, OTHER ==
[~2019-11-29] VITALS: Ht 190.5 cm; Wt 96.8 kg
[~2019-11-29 22:36] MED LIST changes: -LAMO100T PO; +LAMO100T3 PO; -MEMA1TAB PO; +MEMA1TAB3 PO; +PRED20TA PO; +PROV108A INH
[2019-11-29] MEDS ORDERED: LATU20TA (22:49)
[2019-11-29 23:41] LABS: HEMATOCRIT 42.7 % (42.0-52.0); HEMOGLOBIN 13.9 g/dl (13.5-17.5); MEAN CORPUSCULAR HEMOGLOBIN 27.5 pg (27.0-33.0); MEAN CORPUSCULAR HGB CONC 32.6 g/dl (32.0-36.5); MEAN CORPUSCULAR VOLUME 84.6 fl (80.0-96.0); PLATELET COUNT, AUTOMATED 341 10^3/uL (150-450); RED BLOOD COUNT 5.05 10^6/uL (4.30-6.10); WHITE BLOOD COUNT 10.6 10^3/uL (4.0-10.0)
[2019-11-30 00:05] LABS: AMPHETAMINES LEVEL URINE NEGATIVE (NEGATIVE); BARBITURATES URINE NEGATIVE (NEGATIVE); BENZODIAZEPINES URINE NEGATIVE (NEGATIVE); CANNABINOIDS URINE POSITIVE (NEGATIVE); COCAINE METABOLITE URINE NEGATIVE (NEGATIVE); METHADONE URINE NEGATIVE (NEGATIVE); OPIATES URINE NEGATIVE (NEGATIVE); PHENCYCLIDINE URINE NEGATIVE (NEGATIVE)
[2019-11-30] MEDS ORDERED: LISI-538 PO (00:06)
[2019-11-30] MEDS ORDERED: PROAAER10 INH (00:06)
[2019-11-30] MEDS ORDERED: LATU20TA PO (00:06)
[2019-11-30] MEDS ORDERED: VITAD1000T PO (00:06)
[2019-11-30 00:12] LABS: ACETAMINOPHEN LEVEL < 2.0 UG/ML (10.0-30.0); ALBUMIN 4.3 GM/DL (3.2-5.2); ALT/SGPT 28 U/L (12-78); BILIRUBIN,DIRECT 0.2 MG/DL (0.0-0.2); BILIRUBIN,TOTAL 0.6 MG/DL (0.2-1.0); BLOOD UREA NITROGEN 11 MG/DL (7-18); CALCIUM LEVEL 9.5 MG/DL (8.5-10.1); CARBON DIOXIDE LEVEL 26 MEQ/L (21-32); CHLORIDE LEVEL 106 MEQ/L (98-107); CREATININE FOR GFR 0.94 MG/DL (0.70-1.30); ETHYL ALCOHOL (ETHANOL) < 0.003 % (0.000-0.010); GLOMERULAR FILTRATION RATE > 60.0 (>60); GLUCOSE, FASTING 102 MG/DL (70-100); POTASSIUM SERUM 3.5 MEQ/L (3.5-5.1); SALICYLATE LEVEL < 1.7 MG/DL (5.0-30.0); SODIUM LEVEL 138 MEQ/L (136-145); TOTAL PROTEIN 6.9 GM/DL (6.4-8.2)
--- NOTE | 2019-11-30 07:14 | ECGEPIP ---
[facility] - ED Test Date: 2019-11-30 Pat Name: ALDO YIP Department: Room: - Gender: Male Surgical Scheduler: SB : 1990 Requested By: MARY JO GODOY Order Number: [id number] Reading MD: Miguel Moore Measurements Intervals [place] Rate: 82 P: 59 MD: 148 QRS: 62 QRSD: 102 T: 38 QT: 385 QTc: 451 Interpretive Statements SINUS RHYTHM SIMILAR TO 12/26/17 Electronically Signed on 11-30-2019 7:14:37 EST by Miguel Moore
[2019-11-30] MEDS ORDERED: NICOTINE 21MG/24HR 1 EA TRANSDERMAL TD PRN (13:00)
[2019-11-30 13:27] VITALS: BP 167/90
[2019-11-30] MEDS ORDERED: lisinopriL 20 MG TAB PO ONE (13:30)
[2019-11-30] MEDS ORDERED: ACETAMINOPHEN TAB 650MG DOSE (2X325MG) PO ONE (13:30)
[2019-11-30 16:00] VITALS: BP 99/56
[2019-11-30 16:17] VITALS: BP 152/88
[2019-11-30] MEDS: ALBUTEROL SULFATE 2.5 MG/0.5 ML INH NEB SOLN NEB SCH ×2 (18:35→21:30)
--- NOTE | 2019-11-30 18:37 | CR.PDOC ---
General Date of Consultation: Nov 30, 2019 Consultation REASON FOR CONSULTATION/CHIEF COMPLAINT: Physical evaluation HISTORY OF PRESENT ILLNESS: Patient is 28 years old male with past medical history of bipolar disorder, asthma, hypertension presented hospital with psychosis. During my interview patient stated that he was diagnosed hypertension around 10 years ago and since that time he was on the lisinopril. Also he stated that he has asthma, usually he uses albuterol inhaler 1 to times in the month. Patient denies fever, chills, nausea, vomiting, his pain, palpitations diarrhea or dysuria ALLERGIES: Please see below. HOME MEDICATIONS: Please see below. PAST MEDICAL HISTORY: As stated above PAST SURGICAL HISTORY: None FAMILY HISTORY: Father: Healthy Mother: Diabetes type 2 SOCIAL HISTORY: Tobacco use: Denies ETOH: Denies Illicit drug use: Smokes marijuana REVIEW OF SYSTEMS: 10 point review system negative except as listed above PHYSICAL EXAMINATION: VITAL SIGNS: Please see below. Objective: VITAL SIGNS: Please see below. GENERAL APPEARANCE: Well-nourished, well-developed, not in apparent distress HEENT: Normocephalic, atraumatic. Mucous members moist and pink CARDIOVASCULAR: Regular rate and rhythm. No murmurs, rubs or gallops. Radial pulses are intact. There is no lower extremity edema LUNGS: Clear to auscultation ABDOMEN: Abdomen is soft and nontender. MUSCULOSKELETAL: Range of motion is intact in all 4 extremities NEUROLOGICAL: Cranial nerves II-12 are grossly intact. Speech is not dysarthric LABORATORY DATA: Please see below. ASSESSMENT/PLAN: Patient is 28 years old male with past medical history of bipolar disorder, asthma, hypertension presented hospital with psychosis. During my interview jairo faye stated that he was diagnosed hypertension around 10 years ago and since that time he was on the lisinopril. Hypertension Blood pressure is elevated. Recommend to increase the dose of lisinopril to 40 mg Asthma not in acute exacerbation Albuterol when necessary Vital Signs/I&O Vital Signs Date Time Temp Pulse Resp B/P (MAP) Pulse Ox O2 Delivery O2 Flow Rate FiO2 11/30/19 16:17 98.0 60 18 152/88 (109) 99 Room Air Laboratory Data Labs 24H Laboratory Tests 2 11/29/19 23:18: Nucleated Red Blood Cells % (auto) 0.0, Anion Gap 6L, Glomerular Filtration Rate > 60.0, Calcium Level 9.5, Total Bilirubin 0.6, Direct Bilirubin 0.2, Aspartate Amino Transf (AST/SGOT) 25, Alanine Aminotransferase (ALT/SGPT) 28, Alkaline Phosphatase 71, Total Protein 6.9, Albumin 4.3, Albumin/Globulin Ratio 1.65, Thyroid Stimulating Hormone (TSH) 1.010, Salicylates Level < 1.7L, Urine Opiates Screen NEGATIVE, Urine Methadone Screen NEGATIVE, Acetaminophen Level < 2.0L, Urine Barbiturates Screen NEGATIVE, Urine Phencyclidine Screen NEGATIVE, Urine Amphetamines Screen NEGATIVE, Urine Benzodiazepines Screen NEGATIVE, Urine Cocaine Metabolite Screen NEGATIVE, Urine Cannabinoids Screen POSITIVEH, Ethyl Alcohol Level < 0.003 CBC/BMP Laboratory Tests 11/29/19 23:18 Allergies Coded Allergies: cariprazine (Verified Allergy, Intermediate, rash wheezing, 07/14/19) Home Medications Scheduled Cholecalciferol (Vitamin D3) (Vitamin D3) 1,000 Unit Tablet, 1,000 UNITS PO DAILY, (Reported) Fluticasone Furoate (Arnuity Ellipta) 100 Mcg/Act Inh, 100 MCG INH QHS, (Reporte d) Lisinopril (Lisinopril) 20 Mg Tablet, 20 MG PO QHS, (Reported) Lurasidone Hydrochloride (Latuda) 20 Mg Tablet, 20 MG PO QHS, (Reported) Montelukast Sodium (Montelukast Sodium) 10 Mg Tab, 10 MG PO QHS, (Reported) Scheduled PRN Albuterol Sulfate (Albuterol Sulfate) 2.5 Mg/0.5 Ml Neb, 2.5 MG INH Q6H PRN for SHORTNESS OF BREATH, (Reported) Albuterol Sulfate (Proair Hfa) 8.5 Gm Hfa.aer.ad, 2 PUFF INH Q6H PRN for SHORTNESS OF BREATH, (Reported) RAFAEL CAIN DO Nov 30, 2019 18:37
[2019-11-30] MEDS: FLUTICASONE HFA 110 MCG 12 GM INHALER (FLOVENT) INH SCH (20:07)
[2019-11-30] MEDS: OMEPRAZOLE 20 MG CAP PO SCH (20:09)
[2019-11-30] MEDS: MONTELUKAST 10 MG TAB PO SCH (20:09)
[2019-11-30] MEDS: IBUPROFEN 400 MG TAB PO PRN (20:12)
[2019-11-30] MEDS ORDERED: lisinopriL 20 MG TAB PO SCH (21:00)
[2019-11-30] MEDS: lisinopriL 40 MG TAB PO SCH (21:19)
[2019-12-01 06:25] VITALS: BP 142/84
[2019-12-01] MEDS: ALBUTEROL 90 MCG/ACT 8GM HFA INHALER INH PRN ×3 (06:39→17:18)
[2019-12-01] MEDS: ALBUTEROL SULFATE 2.5 MG/0.5 ML INH NEB SOLN NEB SCH ×4 (08:23→20:00)
[2019-12-01] MEDS: OMEPRAZOLE 20 MG CAP PO SCH ×2 (09:26→20:50)
[2019-12-01] MEDS: FLUTICASONE HFA 110 MCG 12 GM INHALER (FLOVENT) INH SCH ×2 (09:29→20:51)
[2019-12-01] MEDS: VITAMIN D 1,000 INTERNATIONAL UNITS TABLET PO SCH (09:29)
--- NOTE | 2019-12-01 09:57 | MHHPEPDOC ---
General Date Of Admission: Nov 30, 2019 Legal Status: 9.39 Chief Complaint "I'm a [employer] so I'm not allowed to even talk about violence b/c it's against my sabianism.". History of Present Illness HISTORY OF THE PRESENT ILLNESS: Patient is a 28 -year-old , male, who was brought to the hospital via police/EMS on after a neighbor called about him yelling loudly about the holocaust in his apartment. When police arrived he was barricading himself in his residence and would not let police in until his mother convinced him to. Police also commented that the pt had hung blankets over over his window, stating, "I don't want people looking at me through my windows". Pt's mother, per ED, states the patient was previously responding well to Invega Sustenna but was switched to Latuda due to the concern of weight gain. Psychiatric Review of Systems Depression (2 or more weeks): denies Past Psychiatric History Previous Psychiatric Diagnosis: Bipolar w/ psychotic features Previous Psychiatric Admissions: Dec 2017, Dec 2016 [facility] Suicide Attempts: . Psychiatric Follow-up: Follows at [facility] and [facility]. Psychiatric medications: Latuda 20mg qhs Past Medical History Medical Problems Asthma. Hypertension. Vitamin D deficiency. Learning disability, completed GED. Bipolar disorder. Oso-dqjpvzt-gqtadckyl diabetes mellitus. Head Injury: No Seizures: No Hospitalizations: Yes ([facility]) Surgeries: Yes ([place]itt teeth. 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) Family Medical/Psychiatric HX Medical Problems Noncontributory Addiction History other (Marijuana ) Social History Childhood: Born and raised in [facility], raised b y mother mostly Abuse/Trauma: unable to assess Current Living Situation: Lives at home with mother in [place] Education: high school edu Employment: unemployed, supported by mother Social Support: mother Legal: none known Marital: Single, no kids, never Mental Status Examination General Appearance: well groomed, appears stated age, hospital scubs/clothing Build: average Demeanor: preoccupied, guarded, other (blunted) Eye Contact: poor Activity: other (intense, odd) Behavior: cooperative, other (intense demeanor, odd) Speech: clear, normal volume, non-spontaneous Mood: euthymic Mood "good... I have no pain." Affect: constricted, flat (blunted), inappropriate, other (odd) Thought Process: concrete (very asked about his mood and told me he has no physical pain), associative Thought Content (Delusions): paranoia Thought Content (Other): preoccupied, guarded, ideas of reference, internal- stimuli, appears paranoid Thought Content (Aggressive): none reported Perception (Hallucinations): auditory (yet pt denies) Perception (Other): none reported Cognition (Impairment of): ability to abstract Cognition(Intelligence Est.): average Oriented: Awake, Alert, Oriented times three Insight: poor Judgment: Fair Psychosis: Associations, Abstract Thinking, Psychotic Perceptions Diagnoses paranoid schizophrenia A-FIB/CHADSVASC A-FIB History Current/History of A-Fib/PAF?: No Assessment Pt seen and states he was playing [employer] game and that he had his microphone on and there was someone "cussing" on the other end that wasn't very very bothersome but that he started screaming on his jess stating "they'll do anything on the jess... trolling... looking to start trouble" referring to people on the [employer] jess. Asked pt how he ended up screaming about the holocaust and wanting to kill people and states he doesn't believe he said that b/c he can't remember saying that. States he feels good today b/c he "has no pain and my body feels good." States he has a back ache and a sprained ankle but is able to play basket ball a few days ago with no problem. His thoughts are very concrete. His affect is very blunted. States his thoughts are "clear" not really thinking about anything. States he was diagnosis with schizophrenia 10yrs ago. States he was on invega sustenna but that he chose to stop invega b/c it was making him gain weight and started on Latuda. Admits thought that he was doing better regarding his schizophrenia. Advised pt that latuda is not for schizophrenia but for bipolar depression and that invega most likely is a good medication for him as he did well on it before and will not gain weight if he manages his diet and exercise appropriately as invega only causes increased appetite. Agrees to restart invega. Denies SI/HI. Appears to be paranoid and possibly responding to internal stimuli. Initial Treatment Plan 1. Patient was admitted on a 9.39 status. 2. Complete history was obtained. 3. With patients permission, family will be contacted and database will be expanded. 4. Patients medication regimen will be reviewed and changed accordingly. 5. Patient will be provided with protected environment. 6. Patient will be treated with individual, group, and milieu therapies. 7. Patient will receive supportive psych-education. 8. Discharge planning will commence immediately. 9. Outpatient follow-up treatment will be strongly recommended. 10. The initial treatment plan will focus initially on: * Depression. * Risk for suicide. 11. invega 3mg bid, d/c latuda ESTIMATED LENGTH OF STAY: 7-10 DAYS. TIME SPENT COUNSELING AND COORDINATING INITIAL CARE: 60 minutes. Vital Signs Vital Signs Date Time Temp Pulse Resp B/P (MAP) Pulse Ox O2 Delivery O2 Flow Rate FiO2 12/01/19 06:25 98.9 81 16 142/84 (103) 11/30/19 16:17 99 Room Air Medications Scheduled Cholecalciferol (Vitamin D3) (Vitamin D3) 1,000 Unit Tablet, 1,000 UNITS PO DAILY, (Reported) Fluticasone Furoate (Arnuity Ellipta) 100 Mcg/Act Inh, 100 MCG INH QHS, (Reported) Lisinopril (Lisinopril) 20 Mg Tablet, 20 MG PO QHS, (Reported) Lurasidone Hydrochloride (Latuda) 20 Mg Tablet, 20 MG PO QHS, (Reported) Montelukast Sodium (Montelukast Sodium) 10 Mg Tab, 10 MG PO QHS, (Reported) Scheduled PRN Albuterol Sulfate (Albuterol Sulfate) 2.5 Mg/0.5 Ml Neb, 2.5 MG INH Q6H PRN for SHORTNESS OF BREATH, (Reported) Albuterol Sulfate (Proair Hfa) 8.5 Gm Hfa.aer.ad, 2 PUFF INH Q6H PRN for SHORTNESS OF BREATH, (Reported) Allergies Coded Allergies: cariprazine (Verified Allergy, Intermediate, rash wheezing, 07/14/19) GME ATTESTATION GME ATTESTATION My faculty preceptor for this patient encounter was physically present during the encounter and was fully available. All aspects of the patient interview, examination, medical decision making process, and medical care plan development were reviewed and approved by the faculty preceptor. The faculty preceptor is aware and concurs with the plan as stated in the body of this note and will attest to such by his/her cosignature. ATTENDING NOTE Pt seen with student and note completed by myself. KRISTEN BASHIR-3 Dec 01, 2019 9:56 am DMITRIY YANG DO Dec 01, 2019 11:44 am
[2019-12-01] MEDS ORDERED: PALIPERIDONE 3 MG ER TAB (INVEGA) PO ONE (11:45)
[2019-12-01 15:40] VITALS: BP 144/82
[2019-12-01] MEDS: IBUPROFEN 400 MG TAB PO PRN (17:19)
[2019-12-01] MEDS: PALIPERIDONE 3 MG ER TAB (INVEGA) PO SCH (20:50)
[2019-12-01] MEDS: lisinopriL 40 MG TAB PO SCH (20:50)
[2019-12-01] MEDS: MONTELUKAST 10 MG TAB PO SCH (20:50)
[2019-12-02 06:05] VITALS: BP 126/60
[2019-12-02] MEDS: OMEPRAZOLE 20 MG CAP PO SCH ×2 (07:54→21:13)
[2019-12-02] MEDS: VITAMIN D 1,000 INTERNATIONAL UNITS TABLET PO SCH (07:54)
[2019-12-02] MEDS: PALIPERIDONE 3 MG ER TAB (INVEGA) PO SCH ×2 (07:54→21:13)
[2019-12-02] MEDS: FLUTICASONE HFA 110 MCG 12 GM INHALER (FLOVENT) INH SCH ×2 (07:54→21:13)
[2019-12-02] MEDS: ALBUTEROL SULFATE 2.5 MG/0.5 ML INH NEB SOLN NEB SCH ×4 (08:49→20:00)
--- NOTE | 2019-12-02 10:26 | MHIPNPDOC ---
[facility] Progress Note Progress Note DATE OF SERVICE: 12/02/19 HISTORY: Patient is a 28 -year-old , male, who was brought to the hospital via police/EMS on after a neighbor called about him yelling loudly about the holocaust in his apartment. When police arrived he was barricading himself in his residence and would not let police in until his mother convinced him to. Police also commented that the pt had hung blankets over over his window, stating, "I don't want people looking at me through my windows". Pt's mother, per ED, states the patient was previously responding well to Invega Sustenna but was switched to Latuda due to the concern of weight gain. Pt seen and states he was playing [employer] video game and that he had his microphone on and there was someone "cussing" on the other end that wasn't very very bothersome but that he started screaming on his jess stating "they'll do anything on the jess... trolling... looking to start trouble" referring to people on the Xbox jess. Asked pt how he ended up screaming about the holocaust and wanting to kill people and states he doesn't believe he said that b/c he can't remember saying that. States he feels good today b/c he "has no pain and my body feels good." States he has a back ache and a sprained ankle but is able to play basket ball a few days ago with no problem. His thoughts are very concrete. His affect is very blunted. States his thoughts are "clear" not really thinking about anything. States he was diagnosis with schizophrenia 10yrs ago. States he was on invega sustenna but that he chose to stop invega b/c it was making him gain weight and started on Latuda. Admits thought that he was doing better regarding his schizophrenia. Advised pt that latuda is not for schizophrenia but for bipolar depression and that invega most likely is a good medication for him as he did well on it before and will not gain weight if he manages his diet and exercise appropriately as invega only causes increased appetite. Agrees to restart invega. Denies SI/HI. Appears to be paranoid and possibly responding to internal stimuli. VITAL SIGNS: See below. NEW TEST RESULTS:See below. CURRENT MEDICATIONS: See below. MENTAL STATUS EXAMINATION: General Appearance: well groomed, appears stated age, hospital scrubs/clothing Build: average Demeanor: cooperative, less preoccupied, guarded, other (blunted) Eye Contact: good Activity: other (intense, odd) Behavior: cooperative Speech: clear, normal volume, spontaneous Mood: euthymic, less blunted Mood "much better." Affect: less constricted, less blunted, more appropriate Thought Process: less concrete, more linear and logical Thought Content (Delusions): less paranoia Thought Content (Other): less preoccupied, guarded, Thought Content (Aggressive): none reported Perception (Hallucinations): denies Perception (Other): none reported Cognition (Impairment of): ability to abstract Cognition(Intelligence Est.): average Oriented: Awake, Alert, Oriented times three Insight: fair Judgment: Fair Psychosis: improved Associations, Abstract Thinking, Psychotic Perceptions DIAGNOSES: paranoid schizophrenia ASSESSMENT:Pt seen and states that he feels "much better" now that he's back on invega. He appears less blunted with more spontaneous speech that is less concrete and more linear and logical. He denies paranoia and hallucinations and no longer appears paranoid or to be responding to internal stimuli. His concentration is good during interview. He is cooperative on the unit. States he's tolerating invega well and feels it's beneficial, likes it. He's agreeable to invega sustenna on Thursday pending oral tolerance and benefit over the weekend. States he slept well last night. He is attending groups and finding them helpful. He denies SI/HI. Pt feels safe here. MANAGEMENT PLAN: continue plan. invega sustenna prior d/c invega 3mg bid TIME SPENT: 30 minutes. Vital Signs Vital Signs Date Time Temp Pulse Resp B/P (MAP) Pulse Ox O2 Delivery O2 Flow Rate FiO2 12/02/19 06:05 98.3 57 18 126/60 (82) 11/30/19 16:17 99 Room Air Current Medications Current Medications Medications (Trade) Dose Ordered Sig/Michael Route PRN Reason Start Time Stop Time Status Last Admin Dose Admin Al Hydrox/Mg Hydrox/Simethicone (Mylanta) 30 ml Q4HP PRN PO HEARTBURN/INDIGESTION 11/30/19 13:00 Albuterol Sulfate (Proventil Neb) 2.5 mg RQID NEB 11/30/19 20:00 12/02/19 08:49 Albuterol Sulfate (Proventil, Ventolin Hfa) 2 puff Q6HP PRN INH SHORTNESS OF BREATH 11/30/19 16:30 12/01/19 17:18 Fluticasone Propionate (Flovent Hfa 110 Mcg) 2 puff BID INH 11/30/19 21:00 12/02/19 07:54 Home Med (Med Rec Complete!) ASDIRECTED XX 11/30/19 00:15 11/30/19 00:08 DC Ibuprofen (Advil) 400 mg Q6HP PRN PO PAIN 11/30/19 13:00 12/01/19 17:19 Lisinopril (Prinivil) 20 mg QHS PO 11/30/19 21:00 11/30/19 18:36 DC Lisinopril (Prinivil) 40 mg QHS PO 11/30/19 21:00 12/01/19 20:50 Magnesium Hydroxide (Milk Of Magnesia) 30 ml DAILYPRN PRN PO CONSTIPATION 11/30/19 13:00 Montelukast Sodium (Singulair) 10 mg QHS PO 11/30/19 21:00 12/01/19 20:50 Nicotine (Nicoderm Cq 21mg) 1 patch DAILY PRN TD smoking cessation 11/30/19 13:00 Olanzapine (ZyPREXA ZYDIS) 10 mg Q4HP PRN PO ANXIETY/AGITATION 11/30/19 13:00 Omeprazole (PriLOSEC) 40 mg BID PO 11/30/19 21:00 12/02/19 07:54 Paliperidone (Invega) 3 mg BID PO 12/01/19 21:00 12/02/19 07:54 Trazodone HCl (Desyrel) 50 mg QHSP PRN PO INSOMNIA 11/30/19 13:00 Vitamin D (Vitamin D) 1,000 units DAILY PO 12/01/19 09:00 12/02/19 07:54 Allergies Coded Allergies: cariprazine (Verified Allergy, Intermediate, rash wheezing, 07/14/19) DMITRIY YANG DO Dec 02, 2019 9:02 am
[2019-12-02] MEDS: IBUPROFEN 400 MG TAB PO PRN ×2 (12:22→18:32)
[2019-12-02 16:17] VITALS: BP 109/69
[2019-12-02] MEDS: OLANZapine ORAL DISINTEGRATING TAB 5MG PO PRN (17:47)
[2019-12-02] MEDS: MOM 30ML SUSPENSION UDC PO PRN (17:47)
[2019-12-02] MEDS: MAALOX 30 ML SUSP *UDC PO PRN (17:47)
[2019-12-02] MEDS: lisinopriL 40 MG TAB PO SCH (21:13)
[2019-12-02] MEDS: MONTELUKAST 10 MG TAB PO SCH (21:13)
[2019-12-03 06:01] VITALS: BP 119/62
[2019-12-03] MEDS: ALBUTEROL SULFATE 2.5 MG/0.5 ML INH NEB SOLN NEB SCH ×4 (08:00→18:38)
[2019-12-03] MEDS: PALIPERIDONE 3 MG ER TAB (INVEGA) PO SCH ×2 (09:02→20:25)
[2019-12-03] MEDS: OMEPRAZOLE 20 MG CAP PO SCH ×2 (09:02→20:25)
[2019-12-03] MEDS: VITAMIN D 1,000 INTERNATIONAL UNITS TABLET PO SCH (09:02)
[2019-12-03] MEDS: FLUTICASONE HFA 110 MCG 12 GM INHALER (FLOVENT) INH SCH ×2 (09:04→20:24)
[2019-12-03] MEDS: OLANZapine ORAL DISINTEGRATING TAB 5MG PO PRN (15:24)
[2019-12-03 15:28] VITALS: BP 147/81
--- NOTE | 2019-12-03 16:01 | MHIPN ---
DATE: 12/03/2019 The patient today tells me "I am doing better." When I asked him why he thought he was doing better and he said, "I have gotten better through [facility]." He has no complaints. He said that he slept okay. I did not elicit any paranoid thoughts from him today. MENTAL STATUS EXAMINATION: He is alert and oriented times three. He is verbally spontaneous. Eye contact is fair. There is no formal thought disorder noted. Mood is "better." Affect is flat. I am not eliciting any psychotic symptoms today. He is denying suicidal or homicidal ideations. Concentration is fair. Memory intact. Insight and judgment fair. DIAGNOSIS: 1. Schizophrenia. TREATMENT PLAN: At this point, we will continue to further evaluate the patient for continued resolution of his psychotic symptoms. We will continue to titrate his medications as indicated. It seems that he is stabilizing at this point in Invega.
[2019-12-03] MEDS: MAALOX 30 ML SUSP *UDC PO PRN (17:07)
[2019-12-03] MEDS: MOM 30ML SUSPENSION UDC PO PRN (17:07)
[2019-12-03] MEDS: lisinopriL 40 MG TAB PO SCH (20:25)
[2019-12-03] MEDS: MONTELUKAST 10 MG TAB PO SCH (20:25)
[2019-12-03] MEDS: traZODone 50 MG TAB PO PRN (20:50)
[2019-12-04 06:10] VITALS: BP 125/67
[2019-12-04] MEDS: ALBUTEROL SULFATE 2.5 MG/0.5 ML INH NEB SOLN NEB SCH ×4 (08:00→19:43)
[2019-12-04] MEDS: FLUTICASONE HFA 110 MCG 12 GM INHALER (FLOVENT) INH SCH ×2 (08:40→20:52)
[2019-12-04] MEDS: VITAMIN D 1,000 INTERNATIONAL UNITS TABLET PO SCH (08:40)
[2019-12-04] MEDS: OMEPRAZOLE 20 MG CAP PO SCH ×2 (08:40→20:49)
[2019-12-04] MEDS: PALIPERIDONE 3 MG ER TAB (INVEGA) PO SCH ×2 (08:40→20:49)
[2019-12-04] MEDS: ALBUTEROL 90 MCG/ACT 8GM HFA INHALER INH PRN ×2 (09:09→19:38)
[2019-12-04] MEDS: IBUPROFEN 400 MG TAB PO PRN ×2 (14:24→19:39)
--- NOTE | 2019-12-04 14:36 | MHIPN ---
DATE: 12/04/2019 The patient today tells me "I am happier, and more stable". He says that he slept well and he feels the medication is really helping him. Apparently he was placed back on the Invega that he had been doing well on before and he really feels this medication works better for him. MENTAL STATUS EXAM: The patient is alert and oriented times three. Eye contact is fairly good. He is relatively spontaneous and there is no formal thought disorder noted. Mood is okay. Affect is constricted by appropriate to mood. I am not eliciting any psychotic symptoms. He denies being suicidal or homicidal. Concentration is fair. Memory is intact. Insight and judgment is fair. DIAGNOSIS: Schizophrenia. TREATMENT PLAN: We will continue to monitor the patient for continued elevation and stabilization of his mood and continued resolutions of any psychotic symptoms and any suicidal thoughts.
[2019-12-04 15:59] VITALS: BP 126/61
[2019-12-04] MEDS: MAALOX 30 ML SUSP *UDC PO PRN (19:38)
[2019-12-04] MEDS: MONTELUKAST 10 MG TAB PO SCH (20:49)
[2019-12-04] MEDS: lisinopriL 40 MG TAB PO SCH (20:50)
[2019-12-04] MEDS: traZODone 50 MG TAB PO PRN (20:51)
[2019-12-04] MEDS: MOM 30ML SUSPENSION UDC PO PRN (21:45)
[2019-12-04] MEDS: OLANZapine ORAL DISINTEGRATING TAB 5MG PO PRN (22:06)
[2019-12-05 06:47] VITALS: BP 119/56
[2019-12-05] MEDS: ALBUTEROL SULFATE 2.5 MG/0.5 ML INH NEB SOLN NEB SCH ×4 (07:53→20:33)
[2019-12-05] MEDS: FLUTICASONE HFA 110 MCG 12 GM INHALER (FLOVENT) INH SCH ×3 (07:53→20:56)
--- NOTE | 2019-12-05 08:57 | MHIPNPDOC ---
[facility] Progress Note Progress Note DATE OF SERVICE: 12/05/19 HISTORY: Patient is a 28 -year-old , male, who was brought to the hospital via police/EMS on after a neighbor called about him yelling loudly about t he holocaust in his apartment. When police arrived he was barricading himself in his residence and would not let police in until his mother convinced him to. Police also commented that the pt had hung blankets over over his window, stating, "I don't want people looking at me through my windows". Pt's mother, per ED, states the patient was previously responding well to Invega Sustenna but was switched to Latuda due to the concern of weight gain. Pt seen and states he was playing [employer] video game and that he had his microphone on and there was someone "cussing" on the other end that wasn't very very bothersome but that he started screaming on his jess stating "they'll do anything on the jess... trolling... looking to start trouble" referring to people on the [employer] jess. Asked pt how he ended up screaming about the holocaust and wanting to kill people and states he doesn't believe he said that b/c he can't remember saying that. States he feels good today b/c he "has no pain and my body feels good." States he has a back ache and a sprained ankle but is able to play basket ball a few days ago with no problem. His thoughts are very concrete. His affect is very blunted. States his thoughts are "clear" not really thinking about anything. States he was diagnosis with schizophrenia 10yrs ago. States he was on invega sustenna but that he chose to stop invega b/c it was making him gain weight and started on Latuda. Admits thought that he was doing better regarding his schizophrenia. Advised pt that latuda is not for schizophrenia but for bipolar depression and that invega most likely is a good medication for him as he did well on it before and will not gain weight if he manages his diet and exercise appropriately as invega only causes increased appetite. Agrees to restart invega. Denies SI/HI. Appears to be paranoid and possibly responding to internal stimuli. VITAL SIGNS: See below. NEW TEST RESULTS:See below. CURRENT MEDICATIONS: See below. MENTAL STATUS EXAMINATION: General Appearance: well groomed, appears stated age, own clothing Build: average Demeanor: cooperative, less preoccupied, guarded, other (blunted) Eye Contact: good Activity: other (intense, odd) Behavior: cooperative Speech: clear, normal volume, less spontaneous Mood: euthymic, blunted Mood "alright." Affect: less constricted, blunted, less appropriate Thought Process: concrete, some linear and logical thought Thought Content (Delusions): less paranoia Thought Content (Other): less preoccupied, guarded Thought Content (Aggressive): none reported Perception (Hallucinations): denies Perception (Other): none reported Cognition (Impairment of): ability to abstract Cognition(Intelligence Est.): average Oriented: Awake, Alert, Oriented times three Insight: fair Judgment: Fair Psychosis: improved Associations, Abstract Thinking, Psychotic Perceptions DIAGNOSES: paranoid schizophrenia ASSESSMENT:Pt seen and states that he feels "alright." States he's tolerating his invega well and feels it's beneficial as his thoughts are more clear. He is agreeable to taking invega sustenna 234mg im today as he tolerating it well and found it beneficial in the past. He continues to appear blunted which is most likely his baseline affect and his speech is less spontaneous today, thoughts remain mostly concrete with some linear and logical thoughts. He denies paranoia and hallucinations and no longer appears paranoid or to be responding to internal stimuli. His concentration is good during interview. He is cooperative on the unit. States he's tolerating invega well and feels it's beneficial, likes it. States he slept well last night. He is attending groups and finding them helpful. He denies SI/HI. Pt feels safe here. MANAGEMENT PLAN: continue plan. invega sustenna today, d/c oral invega tomorrow invega 3mg bid invega sustenna 234mg im x1 today TIME SPENT: 30 minutes. Vital Signs Vital Signs Date Time Temp Pulse Resp B/P (MAP) Pulse Ox O2 Delivery O2 Flow Rate FiO2 12/05/19 06:47 98.1 56 12 119/56 (77) 12/04/19 08:50 Room Air 11/30/19 16:17 99 Current Medications Current Medications Medications (Trade) Dose Ordered Sig/Michael Route PRN Reason Start Time Stop Time Status Last Admin Dose Admin Al Hydrox/Mg Hydrox/Simethicone (Mylanta) 30 ml Q4HP PRN PO HEARTBURN/INDIGESTION 11/30/19 13:00 12/04/19 19:38 Albuterol Sulfate (Proventil Neb) 2.5 mg RQID NEB 11/30/19 20:00 12/02/19 15:05 Albuterol Sulfate (Proventil, Ventolin Hfa) 2 puff Q6HP PRN INH SHORTNESS OF BREATH 11/30/19 16:30 12/04/19 19:38 Fluticasone Propionate (Flovent Hfa 110 Mcg) 2 puff BID INH 11/30/19 21:00 12/04/19 20:52 Home Med (Med Rec Complete!) ASDIRECTED XX 11/30/19 00:15 11/30/19 00:08 DC Ibuprofen (Advil) 400 mg Q6HP PRN PO PAIN 11/30/19 13:00 12/04/19 19:39 Lisinopril (Prinivil) 20 mg QHS PO 11/30/19 21:00 11/30/19 18:36 DC Lisinopril (Prinivil) 40 mg QHS PO 11/30/19 21:00 12/04/19 20:50 Magnesium Hydroxide (Milk Of Magnesia) 30 ml DAILYPRN PRN PO CONSTIPATION 11/30/19 13:00 12/04/19 21:45 Montelukast Sodium (Singulair) 10 mg QHS PO 11/30/19 21:00 12/04/19 20:49 Nicotine (Nicoderm Cq 21mg) 1 patch DAILY PRN TD smoking cessation 11/30/19 13:00 Olanzapine (ZyPREXA ZYDIS) 10 mg Q4HP PRN PO ANXIETY/AGITATION 11/30/19 13:00 12/04/19 22:06 Omeprazole (PriLOSEC) 40 mg BID PO 11/30/19 21:00 12/04/19 20:49 Paliperidone (Invega) 3 mg BID PO 12/01/19 21:00 12/04/19 20:49 Trazodone HCl (Desyrel) 50 mg QHSP PRN PO INSOMNIA 11/30/19 13:00 12/04/19 20:51 Vitamin D (Vitamin D) 1,000 units DAILY PO 12/01/19 09:00 12/04/19 08:40 Allergies Coded Allergies: cariprazine (Verified Allergy, Intermediate, rash wheezing, 07/14/19) DMITRIY YANG DO Dec 05, 2019 8:57 am
[2019-12-05] MEDS: PALIPERIDONE 3 MG ER TAB (INVEGA) PO SCH ×2 (09:30→20:50)
[2019-12-05] MEDS: VITAMIN D 1,000 INTERNATIONAL UNITS TABLET PO SCH (09:30)
[2019-12-05] MEDS: OMEPRAZOLE 20 MG CAP PO SCH ×2 (09:30→20:50)
[2019-12-05] MEDS: ALBUTEROL 90 MCG/ACT 8GM HFA INHALER INH PRN (10:34)
[2019-12-05] MEDS: OLANZapine ORAL DISINTEGRATING TAB 5MG PO PRN (11:48)
[2019-12-05] MEDS ORDERED: PALIPERIDONE PALMITATE 234MG/1.5ML INJ (INVEGA)(J2426)(FREE PSY INPT ONLY) IM ONE (12:00)
[2019-12-05 16:00] VITALS: BP 119/68
[2019-12-05] MEDS: IBUPROFEN 400 MG TAB PO PRN (19:26)
[2019-12-05] MEDS: MAALOX 30 ML SUSP *UDC PO PRN (19:59)
[2019-12-05] MEDS: lisinopriL 40 MG TAB PO SCH (20:49)
[2019-12-05] MEDS: MONTELUKAST 10 MG TAB PO SCH (20:49)
[2019-12-05] MEDS: traZODone 50 MG TAB PO PRN (20:50)
[2019-12-06 06:13] VITALS: BP 135/76
[2019-12-06] MEDS: ALBUTEROL SULFATE 2.5 MG/0.5 ML INH NEB SOLN NEB SCH ×2 (07:43→11:43)
[2019-12-06] MEDS: OMEPRAZOLE 20 MG CAP PO SCH (08:24)
[2019-12-06] MEDS: FLUTICASONE HFA 110 MCG 12 GM INHALER (FLOVENT) INH SCH (08:24)
[2019-12-06] MEDS: VITAMIN D 1,000 INTERNATIONAL UNITS TABLET PO SCH (08:24)
[2019-12-06] MEDS: PALIPERIDONE 3 MG ER TAB (INVEGA) PO SCH (08:24)
[2019-12-06] MEDS: ALBUTEROL 90 MCG/ACT 8GM HFA INHALER INH PRN (08:51)
[2019-12-06] MEDS ORDERED: TRAZ-252 PO (09:07)
[2019-12-06] MEDS ORDERED: INVE234I IM (09:07)
--- NOTE | 2019-12-06 09:08 | MHDSPDOC ---
[facility] Discharge Summary Discharge Summary DATE OF ADMISSION: Nov 30, 2019 at 1:00 pm DATE OF DISCHARGE: Dec 06, 2019 DISCHARGE DIAGNOSES: paranoid schizophrenia REASON FOR ADMISSION: Patient is a 28 -year-old , male, who was brought to the hospital via police/EMS on after a neighbor called about him yelling loudly about the holocaust in his apartment. When police arrived he was barricading himself in his residence and would not let police in until his mother convinced him to. Police also commented that the pt had hung blankets over over his window, stating, "I don't want people looking at me through my windows". Pt's mother, per ED, states the patient was previously responding well to Invega Sustenna but was switched to Latuda due to the concern of weight gain. Pt seen and states he was playing [employer] game and that he had his microphone on and there was someone "cussing" on the other end that wasn't very very bothersome but that he started screaming on his jess stating "they'll do anything on the jess... trolling... looking to start trouble" referring to people on the [employer] jess. Asked pt how he ended up screaming about the holocaust and wanting to kill people and states he doesn't believe he said that b/c he can't remember saying that. States he feels good today b/c he "has no pain and my body feels good." States he has a back ache and a sprained ankle but is able to play basket ball a few days ago with no problem. His thoughts are very concrete. His affect is very blunted. States his thoughts are "clear" not really thinking about anything. States he was diagnosis with schizophrenia 10yrs ago. States he was on invega sustenna but that he chose to stop invega b/c it was making him gain weight and started on Latuda. Admits thought that he was doing better regarding his schizophrenia. Advised pt that latuda is not for schizophrenia but for bipolar depression and that invega most likely is a good medication for him as he did well on it before and will not gain weight if he manages his diet and exercise appropriately as invega only causes increased appetite. Agrees to restart invega. Denies SI/HI. Appears to be paranoid and possibly responding to internal stimuli. CONSULTANTS INVOLVED: medicine for pre-diabetes TREATMENT AND PROGRESS ON THE UNIT : Pt was admitted to [facility], seen for psychiatric assessment and his outpatient latuda was discontinued due to not being effective to treatment pt's psychosis. He was started on invega 3mg bid that he has tolerated and found beneficial in the past with symptoms of psychosis improving with med. He was given invega sustenna 234mg im that he has tolerated well and found beneficial in the past and did after this admission. He was educated on maintaining a healthy diet and exercising regular so he did not gain weight due to increased appetite side effect of invega. He was provided trazodone 50mg qhs prn insomnia. Pt found his medications beneficial and tolerated them well. He attended groups daily during his stay. His symptoms improved with treatment. On day of discharge he denied depression, anxiety, insomnia, SI/HI, hallucinations, delusions. His affect remained blunted that is most likely baseline for the pt. He was discharged home where he lives with his mother with follow-up at [facility]. He felt safe for discharge. DISCHARGE ASSESSMENT: Pt seen and states that he feels "good" and is looking forward to going home today where he lives with his mother who he states is very supportive of him. States he's tolerated his invega sustenna injection yesterday well and feels it's beneficial. He continues to appear blunted which is most likely his baseline affect and his speech is regular and spontaneous today, thoughts are concrete but linear and logical thoughts. He denies paranoia and hallucinations and no longer appears paranoid or to be responding to internal stimuli. His concentration is good during interview. He is cooperative on the unit. States he slept well last night. He is attending groups and finding them helpful. He denies depression, anxiety, insomnia, SI/HI, hallucinations, delusions. Pt feels safe to d/c home today. MENTAL STATUS EXAMINATION ON DISCHARGE: General Appearance: well groomed, appears stated age, own clothing Build: average Demeanor: cooperative, blunted Eye Contact: good Activity: cooperative Behavior: cooperative Speech: clear, normal volume,spontaneous Mood: euthymic, blunted Mood "alright." Affect: euthymic, blunted, appropriate Thought Process: concrete, linear and logical Thought Content (Delusions): denies hallucinations, delusions, paranoia Thought Content (Other): denies SI/HI, AVH Thought Content (Aggressive): none reported Perception (Hallucinations): denies Perception (Other): none reported Cognition (Impairment of): none reported Cognition(Intelligence Est.): average Oriented: Awake, Alert, Oriented times three Insight: fair-good Judgment: Fair-good Psychosis: none reported MEDICATIONS ON DISCHARGE: invega sustenna 234mg qmonthly trazodone 50mg qhs prn insomnia PLAN/FOLLOWUP ARRANGEMENTS: D/c home with follow-up at [facility]. The amount of time spent in the coordination of care for this patient was approximately 30 minutes. Vital Signs/I&Os Vital Signs Date Time Temp Pulse Resp B/P (MAP) Pulse Ox O2 Delivery O2 Flow Rate FiO2 12/06/19 06:13 98.2 63 16 135/76 (95) 12/04/19 08:50 Room Air 11/30/19 16:17 99 Medications Scheduled Cholecalciferol (Vitamin D3) (Vitamin D3) 1,000 Unit Tablet, 1,000 UNITS PO DAILY, (Reported) Fluticasone Furoate (Arnuity Ellipta) 100 Mcg/Act Inh, 100 MCG INH QHS, (Reported) Lisinopril (Lisinopril) 20 Mg Tablet, 20 MG PO QHS, (Reported) Lurasidone Hydrochloride (Latuda) 20 Mg Tablet, 20 MG PO QHS, (Reported) Montelukast Sodium (Montelukast Sodium) 10 Mg Tab, 10 MG PO QHS, (Reported) Scheduled PRN Albuterol Sulfate (Albuterol Sulfate) 2.5 Mg/0.5 Ml Neb, 2.5 MG INH Q6H PRN for SHORTNESS OF BREATH, (Reported) Albuterol Sulfate (Proair Hfa) 8.5 Gm Hfa.aer.ad, 2 PUFF INH Q6H PRN for SHORTNESS OF BREATH, (Reported) Allergies Coded Allergies: cariprazine (Verified Allergy, Intermediate, rash wheezing, 07/14/19) DMITRIY YANG DO Dec 06, 2019 9:08 am
[2019-12-06] MEDS: IBUPROFEN 400 MG TAB PO PRN (11:15)
== END 2019-12-06 13:20 | disposition home or self-care (01) | DRG 750 ==
LOC: M ED 22:36 → M ED INP 11-30 13:00 → M PSY 11-30 14:35
PROVIDERS: ADMIT Psychiatry & Neurology Psychiatry; ATTEND Psychiatry & Neurology Psychiatry
DX: F20.0 Paranoid schizophrenia (principal); E11.9 Type 2 diabetes mellitus without complications; I10 Essential (primary) hypertension; Z79.899 Other long term (current) drug therapy; Z88.8 Allergy status to other drugs, medicaments and biological substances; J45.909 Unspecified asthma, uncomplicated; E55.9 Vitamin D deficiency, unspecified

== ENCOUNTER → 2020-07-06 | Outpatient (CLI) | payer MEDICARE ==
[~2020-07-06] MED LIST changes: +D31000TA2 PO; +INVE234I IM; +LATU20TA; +LATU20TA PO; +LISI-538 PO; -MONT10TA2 PO; +MONT10TA4 PO; +PROAAER10 INH; +TRAZ-252 PO
[2020-07-06 14:26] LABS: BASO % 0.4 % (0.0-1.0); EOS # 0.3 10^3/uL (0.0-0.5); EOS % 4.4 % (0.0-3.0); HEMATOCRIT 40.2 % (42.0-52.0); HEMOGLOBIN 13.1 g/dl (13.5-17.5); LYMPH # 2.3 10^3/uL (1.5-5.0); LYMPH % 33.6 % (24.0-44.0); MEAN CORPUSCULAR HEMOGLOBIN 28.4 pg (27.0-33.0); MEAN CORPUSCULAR HGB CONC 32.6 g/dl (32.0-36.5); MONO # 0.5 10^3/uL (0.0-0.8); MONO % 6.6 % (0.0-5.0); NEUTROPHILS # 3.7 10^3/uL (1.5-8.5); NEUTROPHILS % 54.1 % (36.0-66.0); PLATELET COUNT, AUTOMATED 361 10^3/uL (150-450); RED BLOOD COUNT 4.62 10^6/uL (4.30-6.10); WHITE BLOOD COUNT 6.8 10^3/uL (4.0-10.0)
[2020-07-06 15:04] LABS: ALBUMIN 4.5 GM/DL (3.2-5.2); ALT/SGPT 30 U/L (12-78); BILIRUBIN,TOTAL 0.3 MG/DL (0.2-1.0); BLOOD UREA NITROGEN 8 MG/DL (7-18); CALCIUM LEVEL 9.5 MG/DL (8.5-10.1); CARBON DIOXIDE LEVEL 34 MEQ/L (21-32); CHLORIDE LEVEL 102 MEQ/L (98-107); CREATININE FOR GFR 0.96 MG/DL (0.70-1.30); GLOMERULAR FILTRATION RATE > 60.0 (>60); GLUCOSE, FASTING 82 MG/DL (70-100); POTASSIUM SERUM 4.4 MEQ/L (3.5-5.1); SODIUM LEVEL 137 MEQ/L (136-145); THYROID STIMULATING HORMONE 0.526 uIU/ML (0.358-3.740); TOTAL PROTEIN 7.4 GM/DL (6.4-8.2)
[2020-07-06 15:42] LABS: HIV 1&2 SCREEN CENTAUR NEGATIVE (NEGATIVE)
[2020-07-06 16:48] LABS: CHLAMYDIA DNA AMPLIFICATION NEGATIVE (NEGATIVE); GC DNA AMPLIFICATION NEGATIVE (NEGATIVE)
== END ==
LOC: M LAB 12:32
PROVIDERS: ATTEND Family Medicine Addiction Medicine
DX: Z20.2 Contact with and (suspected) exposure to infections with a predominantly sexual mode of transmission (principal); R61 Generalized hyperhidrosis; Z11.59 Encounter for screening for other viral diseases; Z11.3 Encounter for screening for infections with a predominantly sexual mode of transmission

== ENCOUNTER 2021-03-05 20:03 | Emergency (ER) | payer MEDICARE ==
[~2021-03-05] VITALS: Ht 190.5 cm; Wt 101.9 kg
[~2021-03-05 20:03] MED LIST changes: -LISI-538 PO; +LISI10TA22 PO; -LISI10TA4 PO; +LISI20TA33 PO; +MONT10TA10 PO; -MONT10TA4 PO
[2021-03-05 20:04] VITALS: BP 162/88
== END 2021-03-05 20:47 | disposition left against medical advice (07) ==
LOC: M ED 20:03
DX: Z53.21 Procedure and treatment not carried out due to patient leaving prior to being seen by health care provider (principal)

== ENCOUNTER 2021-03-08 13:15 | Emergency (ER) | payer MEDICARE, OTHER ==
[~2021-03-08] VITALS: Ht 190.5 cm; Wt 103.5 kg
[2021-03-08] MEDS ORDERED: IBUP-1022 (13:33)
[2021-03-08] MEDS ORDERED: ACET-683 (13:33)
[2021-03-08] MEDS ORDERED: AMOX500C (13:33)
[2021-03-08] MEDS ORDERED: LAMO25TA4 (13:33)
[2021-03-08] MEDS ORDERED: ALBUTEROL 90 MCG/ACT 8GM HFA INHALER INH ONE (14:05)
[2021-03-08] MEDS ORDERED: ARNU1INH PO (14:07)
[2021-03-08] MEDS ORDERED: MONT10TA10 PO (14:07)
[2021-03-08] MEDS ORDERED: VENTAER INH (14:07)
[2021-03-08] MEDS ORDERED: HYDR25OIN TOP (14:10)
[2021-03-08 14:30] VITALS: BP 129/76
[2021-03-08 15:44] LABS: HIV 1&2 SCREEN CENTAUR NEGATIVE (NEGATIVE)
== END 2021-03-08 14:38 | disposition home or self-care (01) ==
LOC: M ED 13:15
DX: Z76.0 Encounter for issue of repeat prescription (principal); J45.909 Unspecified asthma, uncomplicated; Z79.51 Long term (current) use of inhaled steroids; Z79.899 Other long term (current) drug therapy; F17.200 Nicotine dependence, unspecified, uncomplicated

== ENCOUNTER 2021-03-09 00:42 | Emergency (ER) | payer MEDICARE, OTHER ==
[~2021-03-09] VITALS: Ht 190.5 cm; Wt 100.0 kg
[~2021-03-09 00:42] MED LIST changes: +ACET-683; +AMOX500C; +ARNU1INH PO; +HYDR25OIN TOP; +IBUP-1022; +LAMO25TA4; +VENTAER INH
[2021-03-09 03:01] VITALS: BP 168/89
[2021-03-09] MEDS ORDERED: COMBIVENT RESPIMAT 100-20MCG INHALER 4GM INH ONE (03:10)
== END 2021-03-09 03:24 | disposition home or self-care (01) ==
LOC: M ED 00:42
DX: J45.909 Unspecified asthma, uncomplicated (principal); F31.9 Bipolar disorder, unspecified; F17.200 Nicotine dependence, unspecified, uncomplicated; Z79.51 Long term (current) use of inhaled steroids; Z79.899 Other long term (current) drug therapy

== ENCOUNTER 2021-03-12 06:51 | Emergency (ER) | payer MEDICARE, OTHER ==
[~2021-03-12] VITALS: Ht 190.5 cm; Wt 100.0 kg
[2021-03-12 07:11] VITALS: BP 173/89
[2021-03-12] MEDS ORDERED: ALBUTEROL 90 MCG/ACT 8GM HFA INHALER INH ONE (07:40)
[2021-03-12] MEDS ORDERED: VENTAER INH (07:42)
[2021-03-12] MEDS ORDERED: ALBU83IN NEB (07:42)
== END 2021-03-12 07:51 | disposition home or self-care (01) ==
LOC: M ED 06:51
DX: R06.02 Shortness of breath (principal); J45.909 Unspecified asthma, uncomplicated; Z77.22 Contact with and (suspected) exposure to environmental tobacco smoke (acute) (chronic); I10 Essential (primary) hypertension; K21.9 Gastro-esophageal reflux disease without esophagitis; Z79.51 Long term (current) use of inhaled steroids; Z79.899 Other long term (current) drug therapy

== ENCOUNTER 2021-03-30 13:34 | Emergency (ER) | payer MEDICARE, OTHER ==
[~2021-03-30] VITALS: Ht 190.5 cm; Wt 95.5 kg
[~2021-03-30 13:34] MED LIST changes: +ALBU83IN NEB
[2021-03-30] MEDS ORDERED: predniSONE 20 MG TAB PO ONE (14:40)
[2021-03-30] MEDS: IPRATROPIUM 0.5MG/ALBUTEROL 2.5MG INH SOL UD 3ML (DUONEB) NEB PRN ×3 (14:50→15:19)
[2021-03-30] MEDS ORDERED: PRED5PAK2 PO (14:52)
[2021-03-30] MEDS ORDERED: PROAAER10 INH (14:52)
[2021-03-30 15:25] VITALS: BP 136/67
== END 2021-03-30 15:25 | disposition home or self-care (01) ==
LOC: M ED 13:34
DX: J45.31 Mild persistent asthma with (acute) exacerbation (principal); I10 Essential (primary) hypertension; K21.9 Gastro-esophageal reflux disease without esophagitis; Z88.8 Allergy status to other drugs, medicaments and biological substances; Z79.51 Long term (current) use of inhaled steroids; Z79.899 Other long term (current) drug therapy
CPT/HCPCS: 94640; 99283; J7512

== ENCOUNTER 2021-04-01 16:21 | Emergency (ER) | payer OTHER ==
[~2021-04-01] VITALS: Ht 190.5 cm; Wt 101.6 kg
[~2021-04-01 16:21] MED LIST changes: +PRED5PAK2 PO
[2021-04-01 16:22] VITALS: BP 124/67
[2021-04-01] MEDS ORDERED: ALBUTEROL 90 MCG/ACT 8GM HFA INHALER INH ONE (16:40)
== END 2021-04-01 17:02 | disposition home or self-care (01) ==
LOC: M ED 16:21
DX: J45.21 Mild intermittent asthma with (acute) exacerbation (principal); Z76.0 Encounter for issue of repeat prescription; I10 Essential (primary) hypertension; K21.9 Gastro-esophageal reflux disease without esophagitis

== ENCOUNTER 2021-04-26 16:15 | Inpatient (IN) | payer MEDICAID, OTHER ==
[~2021-04-26] VITALS: Ht 190.5 cm; Wt 96.8 kg
[~2021-04-26 16:15] MED LIST changes: -LAMO25TA4; +LAMO25TA4 PO
[2021-04-26 17:01] LABS: HEMATOCRIT 41.2 % (42.0-52.0); HEMOGLOBIN 13.2 g/dl (13.5-17.5); MEAN CORPUSCULAR VOLUME 87.3 fl (80.0-96.0); PLATELET COUNT, AUTOMATED 432 10^3/uL (150-450); RED BLOOD COUNT 4.72 10^6/uL (4.30-6.10); WHITE BLOOD COUNT 6.5 10^3/uL (4.0-10.0)
[2021-04-26] MEDS ORDERED: LATU20TA PO (17:03)
[2021-04-26] MEDS ORDERED: D31000TA2 PO (17:03)
[2021-04-26] MEDS ORDERED: OMEP-221 PO (17:03)
[2021-04-26] MEDS ORDERED: ARNU1INH INH (17:03)
[2021-04-26 17:24] LABS: ACETAMINOPHEN LEVEL < 2.0 UG/ML (10.0-30.0); ALT/SGPT 34 U/L (12-78); BILIRUBIN,DIRECT 0.2 MG/DL (0.0-0.2); BILIRUBIN,TOTAL 0.5 MG/DL (0.2-1.0); BLOOD UREA NITROGEN 13 MG/DL (7-18); CARBON DIOXIDE LEVEL 30 MEQ/L (21-32); CHLORIDE LEVEL 106 MEQ/L (98-107); CREATININE FOR GFR 0.99 MG/DL (0.70-1.30); ETHYL ALCOHOL (ETHANOL) < 0.003 % (0.000-0.010); GLOMERULAR FILTRATION RATE > 60.0 (>60); GLUCOSE, FASTING 88 MG/DL (70-100); POTASSIUM SERUM 3.8 MEQ/L (3.5-5.1); SALICYLATE LEVEL < 1.7 MG/DL (5.0-30.0); SODIUM LEVEL 141 MEQ/L (136-145); THYROID STIMULATING HORMONE 0.862 uIU/ML (0.358-3.740); TOTAL PROTEIN 6.4 GM/DL (6.4-8.2)
[2021-04-26 17:36] LABS: AMPHETAMINES LEVEL URINE NEGATIVE (NEGATIVE); BARBITURATES URINE NEGATIVE (NEGATIVE); BENZODIAZEPINES URINE NEGATIVE (NEGATIVE); CANNABINOIDS URINE POSITIVE (NEGATIVE); COCAINE METABOLITE URINE NEGATIVE (NEGATIVE); METHADONE URINE NEGATIVE (NEGATIVE); OPIATES URINE NEGATIVE (NEGATIVE); PHENCYCLIDINE URINE NEGATIVE (NEGATIVE)
[2021-04-26] MEDS ORDERED: OLANZapine ORAL DISINTEGRATING TAB 5MG PO ONE (17:50)
[2021-04-26] MEDS ORDERED: MOM 30ML SUSPENSION UDC PO PRN (18:50)
[2021-04-26] MEDS ORDERED: OLANZapine 5 MG TAB PO PRN (18:50)
[2021-04-26] MEDS ORDERED: ALBU8.5H PO (19:01)
[2021-04-26] MEDS ORDERED: MONT10TA10 PO (19:01)
[2021-04-26 20:49] LABS: RSV AMPLIFICATION NEGATIVE (NEGATIVE)
[2021-04-26 22:00] VITALS: BP 137/74
[2021-04-27] MEDS: LURASIDONE 20 MG TAB (LATUDA) PO SCH (08:35)
[2021-04-27] MEDS: MONTELUKAST 10 MG TAB PO SCH (08:35)
[2021-04-27] MEDS: lamoTRIgine 25MG TAB PO SCH (08:35)
[2021-04-27] MEDS: VITAMIN D 1,000 INTERNATIONAL UNITS TABLET PO SCH (08:35)
[2021-04-27] MEDS: OMEPRAZOLE 20 MG CAP PO SCH (08:35)
[2021-04-27] MEDS: ACETAMINOPHEN TAB 650MG DOSE (2X325MG) PO PRN ×2 (08:40→16:25)
[2021-04-27] MEDS: OLANZapine ORAL DISINTEGRATING TAB 5MG PO PRN (16:25)
[2021-04-27] MEDS: ALBUTEROL 90 MCG/ACT 8GM HFA INHALER INH PRN (17:50)
[2021-04-27] MEDS: FLUTICASONE HFA 110 MCG 12 GM INHALER (FLOVENT) INH SCH (20:00)
[2021-04-28] MEDS: MONTELUKAST 10 MG TAB PO SCH (08:46)
[2021-04-28] MEDS: FLUTICASONE HFA 110 MCG 12 GM INHALER (FLOVENT) INH SCH ×2 (08:46→19:54)
[2021-04-28] MEDS: lamoTRIgine 25MG TAB PO SCH (08:46)
[2021-04-28] MEDS: VITAMIN D 1,000 INTERNATIONAL UNITS TABLET PO SCH (08:46)
[2021-04-28] MEDS: OMEPRAZOLE 20 MG CAP PO SCH (08:46)
[2021-04-28] MEDS: LURASIDONE 20 MG TAB (LATUDA) PO SCH (08:46)
--- NOTE | 2021-04-28 09:13 | HPEPDOC ---
General Date of Admission Apr 26, 2021 at 18:49 Date of Service: Apr 28, 2021 Chief Complaint The patient is a 30-year-old male admitted with a reason for visit of Bipolar Disorder, Janette. 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 He is being examined here today for medical history and physical. DOes not offer any complaints. Home Medications Scheduled Cholecalciferol (Vitamin D3) (Vitamin D3) 1,000 Unit Tablet, 1,000 MG PO DAILY, (Reported) Fluticasone Furoate (Arnuity Ellipta) 100 Mcg Blst.w.dev, 1 PUFF INH DAILY, (Reported) Lamotrigine (Lamotrigine) 25 Mg Tablet, 25 MG PO DAILY, (Reported) Lisinopril (Lisinopril) 20 Mg Tablet, 20 MG PO DAILY, (Reported) Lurasidone Hydrochloride (Latuda) 20 Mg Tablet, 20 MG PO DAILY, (Reported) Montelukast Sodium (Montelukast Sodium) 10 Mg Tablet, 10 MG PO DAILY, (Reported) Omeprazole (Omeprazole) 40 Mg Capsule.dr, 40 MG PO DAILY, (Reported) Scheduled PRN Albuterol Sulfate (Albuterol Sulfate Hfa) 8.5 Gm Hfa.aer.ad, 2 PUFFS PO Q4-6HP PRN for SHORTNESS OF BREATH, (Reported) Allergies Coded Allergies: paliperidone (Verified Allergy, Severe, RASH & THROAT SWELLING, 03/09/21) cariprazine (Verified Allergy, Intermediate, rash wheezing, 07/14/19) SEASONAL ALLERGIES (Verified Allergy, Mild, SINUS ISSUES, 03/09/21) Past Medical History Medical History Bipolar disorder, HTN, asthma, Vitamin D deficiency. Learning disability, completed GED. 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 Dyspnea, Lt Headedness Gastrointestinal: Denies: Nausea, Vomiting, Abdominal Pain, Diarrhea Hematologic: Denies: Bruising, Bleeding Excessively Physical Examination General Exam: Positive: Alert, Cooperative, No Acute Distress Eye Exam: Positive: PERRLA, Conjunctiva & lids normal, EOMI; Negative: Sclera icteric ENT Exam: Positive: Atraumatic, Mucous membr. 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 He is being examined here today for medical history and physical. Bipolar disorder As per Psychiatry Hypertension Continue Lisinopril Asthma/ allergies Continue fluticasone, montelukast . Vit D Def continue supplements Plan / VTE VTE Prophylaxis Ordered?: No (freely ambulatory) JOAO HOBBS MD Apr 28, 2021 09:13
[2021-04-28] MEDS: MAALOX 30 ML SUSP *UDC PO PRN ×2 (11:14→21:43)
--- NOTE | 2021-04-28 13:32 | MHHPE ---
[facility] HISTORY AND PHYSICAL DATE OF ADMISSION: 04/26/2021 This is a video assessment and I will be going into the hospital to see him face to face later. I am at home. He is in the inpatient psychiatry unit. He is seen in the presence of staff. CHIEF COMPLAINT: "I don't need to be here." SUBJECTIVE: He is 30 years old. He says he does not need to be here and, in fact, is quite guarded, paranoid and possibly unable to cooperate during the interview. Gets upset easily, suggests that I should know why he is here, would not want to answer those questions, feels that I am trying to incriminate him. The bulk of the history is obtained from the emergency room (ER) report. He was brought in by police and as detectives were investigating bomb threats and threats to people that had been made in the city. Per the report, when the detectives had gone in to see him, he was in his hotel room and was seen to be arguing with himself, refusing to let them in and the report of the police are somewhat certain the threats had come from him. He has also been arguing with people around the city and report suggests he was experiencing confucianist and paranoid delusions. He denies all this and says police pick on him and, in fact, referred to them as "my best friends, the police," and suggested that he was being sarcastic. Says has been staying at a local motel, but did not want to answer any further questions regarding how long he had been there or if he had family in the area, how he was sleeping or eating, or anything to do with his mental state. Suggested that he felt fine and that he needed to be out of here. He also said that if he is not discharged within a week or two, then he would "do something." When asked what he would do, declined to elaborate and was further irritated. He does say that he was prescribed medicine. He is on Latuda at 20 mg daily. Says takes it regularly and that it was prescribed by Sushma Santillan, who is a local nurse practitioner. Also suggested he took the other medicines. One of them was Lamictal 25 mg daily, though this was last possibly filled March 08, 2021. ER report suggests that he has indicated he has a history of bipolar disorder with eloy. Has denied the bomb threats, had threatened to rape white women, which he has also denied, and has suggested he needs to be here for a couple of days so he can get revenge and that it was a "bible thing." The report also suggests he says he has a girlfriend or two, but did not elaborate. When seen in the emergency room, was sweating profusely and had indicated that heard the voices of his partners through telepathy. He says police pick on him because he is not white. Mentions Benigno Romeo and his . Also suggests that he does not absorb medicines well because he is , when I had proposed increasing the Latuda he is on. He then suggested he did not wish to answer anymore questions and left the interview room. PAST PSYCHIATRIC HISTORY: Has been hospitalized here in 2016, 2019 and some of the summaries suggest a history of psychosis, and when last seen here in hospital last year, was psychotic, diagnosed with paranoid schizophrenia. Was on Invega Sustenna at some point. Unclear how regular he has been on that. FAMILY PSYCHIATRIC HISTORY: Unclear at present. SUBSTANCE ABUSE HISTORY: Unclear, but urine toxicology was positive for cannabinoids this admission. It was positive for cannabinoids in November 2019 as well. MEDICAL HISTORY: According to previous assessment done last year, suggests a history of asthma, hypertension, vitamin D deficiency, non-insulin dependent diabetes mellitus. MEDICATIONS: These are unclear, but suggests that he started taking Latuda at 20 mg at night. Chart suggests he is also on lisinopril, but he apparently last used it in November last year. Lamictal is mentioned previously at 25 mg daily, omeprazole 40 mg daily, vitamin D3, fluticasone inhaler, albuterol inhalers as needed and montelukast. SOCIAL HISTORY: Unclear. Currently lives at a motel. In the past had apparently lived with his mother. MENTAL STATUS EXAMINATION: He is neat, tall, well-nourished, guarded, essentially uncooperative, irritable. Coherent for brief parts, then somewhat tangential, paranoid. Does not appear to be internally preoccupied, delusions of persecution. Thought to be alert and oriented, but he was not tested formally, as he decided to not answer any further questions and walked out. There was no fluctuation of consciousness noted. Intellect is deemed to be average. Judgment and insight are quite compromised. ASSESSMENT: 1. Unspecified psychotic disorder. 2. Rule out bipolar disorder, current episode manic with psychotic features. 3. Rule out schizophrenia. The patient is psychotic, deluded, delusions of persecution as well, and with quite possible homicidal ideas in that he has made threats to various places apparently and has threatened hurting others. Has very poor judgment and insight. PLAN: He is admitted to the inpatient psychiatry unit, placed on relevant precautions. We will look at obtaining collateral information. He will receive a medicine consultation if indicated. I would suggest increasing the Latuda to 40 mg at night, but he adamantly refuses, does not wish to have his medication changed. He feels he does well on that, which is quite inaccurate. We will look at attempting to persuade him to an increase in the dose. He is also placed on anti-agitation medications. He will be encouraged to participate in activities in the unit as tolerated and as long as it is safe. He will be discharged with followup once he is stable. I anticipate at least a seven day stay. Further recommendations to be made depending on the clinical picture. The assessment took 35 minutes.
[2021-04-28] MEDS: ACETAMINOPHEN TAB 650MG DOSE (2X325MG) PO PRN ×2 (16:41→20:19)
[2021-04-28 16:43] VITALS: BP 131/70
[2021-04-28] MEDS: OLANZapine ORAL DISINTEGRATING TAB 5MG PO PRN (19:58)
[2021-04-28] MEDS: ALBUTEROL 90 MCG/ACT 8GM HFA INHALER INH PRN (20:16)
[2021-04-29] MEDS: OLANZapine ORAL DISINTEGRATING TAB 5MG PO PRN ×2 (06:50→11:41)
[2021-04-29 06:51] VITALS: BP 113/59
[2021-04-29] MEDS: LURASIDONE 20 MG TAB (LATUDA) PO SCH (07:28)
[2021-04-29] MEDS: FLUTICASONE HFA 110 MCG 12 GM INHALER (FLOVENT) INH SCH ×3 (07:30→21:31)
[2021-04-29] MEDS: OMEPRAZOLE 20 MG CAP PO SCH (08:07)
[2021-04-29] MEDS: PALIPERIDONE 3 MG ER TAB (INVEGA) PO SCH (08:07)
[2021-04-29] MEDS: VITAMIN D 1,000 INTERNATIONAL UNITS TABLET PO SCH (08:08)
[2021-04-29] MEDS: lamoTRIgine 25MG TAB PO SCH (08:08)
[2021-04-29] MEDS: MONTELUKAST 10 MG TAB PO SCH (08:08)
[2021-04-29] MEDS: ACETAMINOPHEN TAB 650MG DOSE (2X325MG) PO PRN ×2 (08:23→21:32)
[2021-04-29] MEDS: ALBUTEROL 90 MCG/ACT 8GM HFA INHALER INH PRN ×3 (08:39→21:36)
[2021-04-29] MEDS: MAALOX 30 ML SUSP *UDC PO PRN (08:39)
[2021-04-29] MEDS ORDERED: PALIPERIDONE 3 MG ER TAB (INVEGA) PO SCH (09:00)
[2021-04-29] MEDS: NICOTINE 21MG/24HR 1 EA TRANSDERMAL TD PRN (09:25)
--- NOTE | 2021-04-29 10:21 | MHIPN ---
[facility] PROGRESS NOTE DATE: 04/28/2021 This is a video assessment, I am at home, he is in the inpatient psychiatry unit, he is seen in the presence of staff. CHIEF COMPLAINT: Says feels okay. SUBJECTIVE: Seen for followup. Indicates feels okay, and that he wishes to return to taking an Invega shot. Says last took it when he was attending [facility] ([facility]) and that he tolerated it, except for weight gain. Says he thinks he would rather take the Invega than continue the Latuda. Has been on the Latuda for the last few months, per the patient. It should be noted I would question his reliability. Says slept well, has been talking to his mother. MENTAL STATUS EXAMINATION: Neat, guarded, somewhat superficially cooperative, less overtly irritable, but does get irritated as the interview proceeds, no overt agitation, no psychomotor retardation, affect is reactive. Denies thoughts of harming himself or anyone else at present, no overt delusions elicited, but remains deluded, and does not overtly appear internally preoccupied. Cognition grossly intact, judgment and insight remain quite poor. ASSESSMENT: Unspecified psychotic disorder. The picture is more in keeping with bipolar disorder, with current eloy and psychotic features, though the differential will include schizophrenia. Remains deluded, irritable, though possibly not as overtly so. He had been agitated in the evening yesterday. He was last on Invega injectable, as far as I can tell, when he was discharged from here in December 2017. He says he has had the injection at [facility] ([facility]). We have no way of confirming that at present. PLAN: We spoke of increasing the Latuda versus reintroducing Invega. Invega is also registered as an allergy, but he informed staff later that he does not have an allergy, but that he has gained weight on it. Says if he is to gain weight through Invega, he knows ways of working it off, mainly by exercise. Given the above, we will look at the possibility of resuming him on Invega Sustenna, but it is preferable that is confirmed, his last use, including as an outpatient. Meanwhile, we will start him on oral Invega, will continue with Latuda for now. He is to be encouraged to participate in activities in the unit, as far as he can tolerate them, and may require direction. He will be seen by the assigned clinician tomorrow. Further recommendations will then be made.
--- NOTE | 2021-04-29 13:17 | MHIPNPDOC ---
[facility] Progress Note Progress Note DATE OF SERVICE: 04/29/21 HISTORY: Patient is a 30-year old Single, Unemployed/Disabled, Male who reports that his brother brought him here, states I dont know why I was brought here, I dont need to be here. Patient is very grandiose, paranoid, and bizarre. He was brought to the ED on a 9.45 transport status and it was reported that he was making bomb threats around the city. PER ED REPORT: Pt is here on a 9.45 issued by Faroo[facility] K[facility] ENP based on information provided by Detective Giron. Pt was in his hotel room arguing with himself and refusing to let police enter. He is under investigation for making several bomb threats around the city today (although Pt denies) the police are rather certain the threats have come from him. He has been "menacing" and arguing with people all around the city and having mormonism and paranoid delusions. Patient states, "clueless, for crimes I didn't do when asked what brings him in today. He is very unorganized in his thoughts and is fixated on "staying for a couple days then leaving [place]" Pt is vague when asked for details on what crimes he thinks the police are investigating, he refuses to give details. When asked about bomb threats, he denies but quickly changes subject and at one point asked if "the investigation would be expunged" if he was admitted to mental health. Pt is paranoid about the police investigating him. Pt admits to a Hx of bi-polar with eloy. When asked if he feels manic recently he states "pot fixes everything for me" He describes eloy as being "angry or really happy" but would not confirm that he feels this now. At one point during the interview, Pt said "I need to only be here a couple days so I can get revenge" when asked to elaborate, he said "It has to be done it's a bible thing" he does not identify a target or reason for his revenge. Pt states that he has not had his Invega since his last hospitalization here, reporting that it "gave me these" as he grabs his breasts and a part of his midsection. He reports that "there are several injections we offer here, just need to find one that is non-weight gaining" Pt states he lives at both [facility] and [facility] alone but sometimes a girlfriend stays with him and that he has 2 girlfriends and they don't mind, but refuses to provide names. It is noted that Pt is sweating profusely from his head while speaking to PSA, and has very poor eye contact. Pt denies SI/HI and when asked about hallucinations, he states "its telepathy and I hear the voices of my baby mommas" He then goes on a tangent about a CPS investigation from a decade ago. Pt states "I am racist against white people and you will never change that" VITAL SIGNS: See below. NEW TEST RESULTS: . CURRENT MEDICATIONS: See below. MENTAL STATUS EXAMINATION: Patient is a 30-year old Single, Unemployed/Disabled, Male who was brought to the ED on a 9.45 transport status and it was reported that he was making bomb threats around the city. Speech: Is fluid, conversant, normal rate, tone and volume Language skills are intact Thought processes including: linear and goal oriented Thought content: denies depression and anxiety. Denies suicidal/homicidal ideation, planning or intent. Abstract reasoning, and computation: fair Description of associations: denies, none observed Description of abnormal or psychotic thoughts: denies, paranoid, grandiose, odd beliefs Judgment: poor Insight: poor Orientation: alert and oriented to person, place, time and situation Recent and remote memory: intact Attention span and concentration: good Language: expansive Fund of knowledge: average Mood: Euthymic Mood Affect: reactive DIAGNOSES: Bipolar I, Recurrent, Manic ASSESSMENT: when asked about the bomb threat, patient states "I have answered that questions 3 times, why do you keep asking me" Patient is grandiose in his speech he states "I am hoping that I can get inheritance from her mother because my other 2 brothers have houses in I live in two hotels and I need an apartment. 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 Vital Signs Vital Signs Date Time Temp Pulse Resp B/P (MAP) Pulse Ox O2 Delivery O2 Flow Rate FiO2 04/29/21 06:51 97.9 64 20 113/59 (77) 100 Room Air Current Medications Current Medications Medications (Trade) Dose Ordered Sig/Michael Route PRN Reason Start Time Stop Time Status Last Admin Dose Admin Acetaminophen (Tylenol Tab) 650 mg Q6HP PRN PO HEADACHE or MILD DISCOMFORT 04/26/21 18:50 04/29/21 08:23 Al Hydrox/Mg Hydrox/Simethicone (Mylanta) 30 ml Q4HP PRN PO HEARTBURN/INDIGESTION 04/26/21 18:50 04/29/21 08:39 Albuterol Sulfate (Proventil, Ventolin Hfa) 2 puff Q6HP PRN INH SHORTNESS OF BREATH 04/26/21 20:05 04/29/21 08:39 Fluticasone Propionate (Flovent Hfa 110 Mcg) 2 puff RBID INH 04/27/21 20:00 04/29/21 07:30 Home Med (Med Rec Complete!) ASDIRECTED XX 04/26/21 19:05 04/26/21 19:03 DC Lamotrigine (LaMICtal) 25 mg DAILY PO 04/27/21 09:00 04/29/21 08:08 Lisinopril (Prinivil) 20 mg DAILY PO 04/27/21 09:00 04/29/21 08:08 Lurasidone HCl (Latuda) 20 mg DAILY@0800 PO 04/27/21 08:00 04/29/21 07:28 Magnesium Hydroxide (Milk Of Magnesia) 30 ml DAILYPRN PRN PO CONSTIPATION 04/26/21 18:50 Montelukast Sodium (Singulair) 10 mg DAILY PO 04/27/21 09:00 04/29/21 08:08 Nicotine (Nicoderm Cq 21mg) 1 patch DAILYPRN PRN TD NICOTINE WITHDRAWAL 04/29/21 08:30 04/29/21 09:25 Olanzapine (ZyPREXA ZYDIS) 5 mg Q4HP PRN PO ANXIETY/AGITATION 04/26/21 20:50 04/29/21 11:41 Olanzapine (ZyPREXA) 5 mg Q4HP PRN PO ANXIETY/AGITATION 04/26/21 18:50 Cancel Omeprazole (PriLOSEC) 40 mg DAILY PO 04/27/21 09:00 04/29/21 08:07 Paliperidone (Invega) 1.5 mg QAM PO 04/29/21 09:00 04/28/21 22:19 DC Paliperidone (Invega) 3 mg QAM PO 04/29/21 09:00 04/29/21 08:07 Trazodone HCl (Desyrel) 50 mg QHSP PRN PO INSOMNIA 04/26/21 18:50 Vitamin D (Vitamin D) 1,000 units DAILY PO 04/27/21 09:00 04/29/21 08:08 Allergies Coded Allergies: cariprazine (Verified Allergy, Intermediate, rash wheezing, 07/14/19) SEASONAL ALLERGIES (Verified Allergy, Mild, SINUS ISSUES, 03/09/21) paliperidone (Verified Adverse Reaction, Mild, *SEE NOTE, 04/28/21) Pt. reports that he has the side effect/adverse reaction of weight gain. Pt. denies any allergies associated with previously receiving this medication. RKAEL GOODWIN NP Apr 29, 2021 13:03
[2021-04-29 17:22] VITALS: BP 123/55
[2021-04-30 07:22] VITALS: BP 140/74
[2021-04-30] MEDS: FLUTICASONE HFA 110 MCG 12 GM INHALER (FLOVENT) INH SCH ×2 (08:33→20:06)
[2021-04-30] MEDS: PALIPERIDONE 3 MG ER TAB (INVEGA) PO SCH (08:33)
[2021-04-30] MEDS: MONTELUKAST 10 MG TAB PO SCH (08:34)
[2021-04-30] MEDS: lamoTRIgine 25MG TAB PO SCH (08:34)
[2021-04-30] MEDS: OMEPRAZOLE 20 MG CAP PO SCH (08:34)
[2021-04-30] MEDS: LURASIDONE 20 MG TAB (LATUDA) PO SCH (08:34)
[2021-04-30] MEDS: VITAMIN D 1,000 INTERNATIONAL UNITS TABLET PO SCH (08:35)
[2021-04-30] MEDS: ACETAMINOPHEN TAB 650MG DOSE (2X325MG) PO PRN ×2 (09:19→21:10)
[2021-04-30] MEDS ORDERED: LORazepam 2 MG TAB PO ONE (10:00)
[2021-04-30] MEDS ORDERED: diphenhydrAMINE 50MG CAP PO ONE (10:00)
[2021-04-30] MEDS: OLANZapine ORAL DISINTEGRATING TAB 5MG PO PRN ×2 (11:07→20:06)
[2021-04-30] MEDS: NICOTINE 21MG/24HR 1 EA TRANSDERMAL TD PRN (11:28)
[2021-04-30] MEDS: MAALOX 30 ML SUSP *UDC PO PRN ×3 (11:47→22:29)
--- NOTE | 2021-04-30 13:23 | MHIPNPDOC ---
[facility] Progress Note Progress Note DATE OF SERVICE: 04/30/21 HISTORY: Patient is a 30-year old Single, Unemployed/Disabled, Male who reports that his brother brought him here, states I dont know why I was brought here, I dont need to be here. Patient is very grandiose, paranoid, and bizarre. He was brought to the ED on a 9.45 transport status and it was reported that he was making bomb threats around the city. PER ED REPORT: Pt is here on a 9.45 issued by Farooq K[facility] ENP based on information provided by Detective Giron. Pt was in his hotel room arguing with himself and refusing to let police enter. He is under investigation for making several bomb threats around the city today (although Pt denies) the police are rather certain the threats have come from him. He has been "menacing" and arguing with people all around the city and having samaritan and paranoid delusions. Patient states, "clueless, for crimes I didn't do when asked what brings him in today. He is very unorganized in his thoughts and is fixated on "staying for a couple days then leaving [place]" Pt is vague when asked for details on what crimes he thinks the police are investigating, he refuses to give details. When asked about bomb threats, he denies but quickly changes subject and at one point asked if "the investigation would be expunged" if he was admitted to mental health. Pt is paranoid about the police investigating him. Pt admits to a Hx of bi-polar with eloy. When asked if he feels manic recently he states "pot fixes everything for me" He describes eloy as being "angry or really happy" but would not confirm that he feels this now. At one point during the interview, Pt said "I need to only be here a couple days so I can get revenge" when asked to elaborate, he said "It has to be done it's a bible thing" he does not identify a target or reason for his revenge. Pt states that he has not had his Invega since his last hospitalization here, reporting that it "gave me these" as he grabs his breasts and a part of his midsection. He reports that "there are several injections we offer here, just need to find one that is non-weight gaining" Pt states he lives at both [facility] and [facility] alone but sometimes a girlfriend stays with him and that he has 2 girlfriends and they don't mind, but refuses to provide names. It is noted that Pt is sweating profusely from his head while speaking to PSA, and has very poor eye contact. Pt denies SI/HI and when asked about hallucinations, he states "its telepathy and I hear the voices of my baby mommas" He then goes on a tangent about a CPS investigation from a decade ago. Pt states "I am racist against white people and you will never change that" VITAL SIGNS: See below. NEW TEST RESULTS: . CURRENT MEDICATIONS: See below. MENTAL STATUS EXAMINATION: Patient is a 30-year old Single, Unemployed/Disabled, Male who was brought to the ED on a 9.45 transport status and it was reported that he was making bomb threats around the city. Speech: Is fluid, conversant, normal rate, tone and volume Language skills are intact Thought processes including: delusional, loose Thought content: denies depression and anxiety. Denies suicidal/homicidal ideation, planning or intent. Abstract reasoning, and computation: fair Description of associations: denies, none observed Description of abnormal or psychotic thoughts: denies, paranoid, grandiose, delusional Judgment: poor Insight: poor Orientation: alert and oriented to person, place, time and situation Recent and remote memory: intact Attention span and concentration: good Language: expansive Fund of knowledge: average Mood: Euthymic Mood Affect: reactive DIAGNOSES: Bipolar I, Recurrent, Manic ASSESSMENT: Patient found walking in the hallway, wanting his medications says that he should get a nebulizer treatment because he is wheezing. Patient did not have any shortness of breath or difficulty speaking, his respirations are equal bilateral and he demonstrates no pursed lip breathing. Patient is delusional and his individual session reports that there are several RNs that are pretending to have sex with him. He reports that Elle asked him to smell her feet for $100. He complains of being restricted from yoga class, patient is restricted from group therapy because of his inappropriateness poor insight and poor judgment and sexual comments. 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 According to his mother patient is trying to manipulate states he will take his Invega but does not want to stay on it she wants him to be on a long-acting injectable that will not cause his complaints of weight gain shakiness and sweatiness. She would also like him to his be on a long-acting injectables that will guarantee his continued compliance with the injections [id number]. Patient at this time continues to have psychotic symptoms and sexually inappropriate behaviors and delusions. He had required emergency oral medications of Haldol 10 mg, Ativan 2 mg, Benadryl 50 mg due to his increasing agitation and being angry. Barriers to discharge as patient is still demonstrating poor insight and poor judgment in appears to be dangerous to others he is not sufficiently stable for discharge due to his behaviors, symptoms, and poor insight and judgment. MANAGEMENT PLAN: Continue all medications TIME SPENT: 25 minutes. Vital Signs Vital Signs Date Time Temp Pulse Resp B/P (MAP) Pulse Ox O2 Delivery O2 Flow Rate FiO2 04/30/21 07:22 97.5 85 20 140/74 (96) 99 Room Air Current Medications Current Medications Medications (Trade) Dose Ordered Sig/Michael Route PRN Reason Start Time Stop Time Status Last Admin Dose Admin Acetaminophen (Tylenol Tab) 650 mg Q6HP PRN PO HEADACHE or MILD DISCOMFORT 04/26/21 18:50 04/30/21 09:19 Al Hydrox/Mg Hydrox/Simethicone (Mylanta) 30 ml Q4HP PRN PO HEARTBURN/INDIGESTION 04/26/21 18:50 04/30/21 11:47 Albuterol Sulfate (Proventil, Ventolin Hfa) 2 puff Q6HP PRN INH SHORTNESS OF BREATH 04/26/21 20:05 04/29/21 21:36 Fluticasone Propionate (Flovent Hfa 110 Mcg) 2 puff RBID INH 04/27/21 20:00 04/30/21 08:33 Home Med (Med Rec Complete!) ASDIRECTED XX 04/26/21 19:05 04/26/21 19:03 DC Lamotrigine (LaMICtal) 25 mg DAILY PO 04/27/21 09:00 04/30/21 08:42 DC 04/30/21 08:34 Lisinopril (Prinivil) 20 mg DAILY PO 04/27/21 09:00 04/30/21 08:35 Lurasidone HCl (Latuda) 20 mg DAILY@0800 PO 04/27/21 08:00 04/30/21 08:34 Magnesium Hydroxide (Milk Of Magnesia) 30 ml DAILYPRN PRN PO CONSTIPATION 04/26/21 18:50 Montelukast Sodium (Singulair) 10 mg DAILY PO 04/27/21 09:00 04/30/21 08:34 Nicotine (Nicoderm Cq 21mg) 1 patch DAILYPRN PRN TD NICOTINE WITHDRAWAL 04/29/21 08:30 04/30/21 11:28 Olanzapine (ZyPREXA ZYDIS) 5 mg Q4HP PRN PO ANXIETY/AGITATION 04/26/21 20:50 04/30/21 11:07 Olanzapine (ZyPREXA) 5 mg Q4HP PRN PO ANXIETY/AGITATION 04/26/21 18:50 Cancel Omeprazole (PriLOSEC) 40 mg DAILY PO 04/27/21 09:00 04/30/21 08:34 Paliperidone (Invega) 1.5 mg QAM PO 04/29/21 09:00 04/28/21 22:19 DC Paliperidone (Invega) 3 mg QAM PO 04/29/21 09:00 04/30/21 08:33 Trazodone HCl (Desyrel) 50 mg QHSP PRN PO INSOMNIA 04/26/21 18:50 Vitamin D (Vitamin D) 1,000 units DAILY PO 04/27/21 09:00 04/30/21 08:35 Allergies Coded Allergies: cariprazine (Verified Allergy, Intermediate, rash wheezing, 07/14/19) SEASONAL ALLERGIES (Verified Allergy, Mild, SINUS ISSUES, 03/09/21) paliperidone (Verified Adverse Reaction, Mild, *SEE NOTE, 04/28/21) Pt. reports that he has the side effect/adverse reaction of weight gain. Pt. denies any allergies associated with previously receiving this medication. RAKEL GOODWIN MOTOR RACER Apr 30, 2021 13:23
[2021-04-30 18:41] VITALS: BP 127/64
[2021-04-30] MEDS: ALBUTEROL 90 MCG/ACT 8GM HFA INHALER INH PRN (21:10)
[2021-05-01] MEDS: MONTELUKAST 10 MG TAB PO SCH (09:07)
[2021-05-01] MEDS: PALIPERIDONE 3 MG ER TAB (INVEGA) PO SCH (09:07)
[2021-05-01] MEDS: VITAMIN D 1,000 INTERNATIONAL UNITS TABLET PO SCH (09:07)
[2021-05-01] MEDS: OMEPRAZOLE 20 MG CAP PO SCH (09:08)
[2021-05-01] MEDS: OLANZapine ORAL DISINTEGRATING TAB 5MG PO PRN ×2 (09:08→17:32)
[2021-05-01] MEDS: LURASIDONE 20 MG TAB (LATUDA) PO SCH (09:09)
[2021-05-01] MEDS: FLUTICASONE HFA 110 MCG 12 GM INHALER (FLOVENT) INH SCH ×2 (09:10→19:37)
[2021-05-01] MEDS: ALBUTEROL 90 MCG/ACT 8GM HFA INHALER INH PRN ×2 (09:30→19:38)
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
[2021-05-01] MEDS ORDERED: PALIPERIDONE PALMITATE 234MG/1.5ML INJ (INVEGA)(FREE PSY INPT ONLY) IM ONE (13:00)
[2021-05-01] MEDS: ACETAMINOPHEN TAB 650MG DOSE (2X325MG) PO PRN (14:07)
[2021-05-01] MEDS: NICOTINE 21MG/24HR 1 EA TRANSDERMAL TD PRN (17:30)
[2021-05-01 18:40] VITALS: BP 142/85
[2021-05-01] MEDS: MAALOX 30 ML SUSP *UDC PO PRN (20:06)
[2021-05-02] MEDS: LURASIDONE HCL 40 MG TAB (LATUDA) PO SCH (07:46)
[2021-05-02] MEDS: FLUTICASONE HFA 110 MCG 12 GM INHALER (FLOVENT) INH SCH ×2 (07:51→19:48)
[2021-05-02] MEDS: OMEPRAZOLE 20 MG CAP PO SCH (10:06)
[2021-05-02] MEDS: VITAMIN D 1,000 INTERNATIONAL UNITS TABLET PO SCH (10:07)
[2021-05-02] MEDS: MONTELUKAST 10 MG TAB PO SCH (10:09)
[2021-05-02] MEDS: PALIPERIDONE 3 MG ER TAB (INVEGA) PO SCH (10:13)
[2021-05-02] MEDS: ACETAMINOPHEN TAB 650MG DOSE (2X325MG) PO PRN ×2 (10:52→19:48)
--- NOTE | 2021-05-02 11:19 | MHIPNPDOC ---
[facility] Progress Note Progress Note DATE OF SERVICE: 05/02/21 HISTORY: Patient is a 30-year old Single, Unemployed/Disabled, Male who reports that his brother brought him here, states I dont know why I was brought here, I dont need to be here. Patient is very grandiose, paranoid, and bizarre. He was brought to the ED on a 9.45 transport status and it was reported that he was making bomb threats around the city. PER ED REPORT: Pt is here on a 9.45 issued by Faroo[facility] ENP based on information provided by Detective Giron. Pt was in his hotel room arguing with himself and refusing to let police enter. He is under investigation for making several bomb threats around the city today (although Pt denies) the police are rather certain the threats have come from him. He has been "menacing" and arguing with people all around the city and having holiness and paranoid delusions. Patient states, "clueless, for crimes I didn't do when asked what brings him in today. He is very unorganized in his thoughts and is fixated on "staying for a couple days then leaving [place]" Pt is vague when asked for details on what crimes he thinks the police are investigating, he refuses to give details. When asked about bomb threats, he denies but quickly changes subject and at one point asked if "the investigation would be expunged" if he was admitted to mental health. Pt is paranoid about the police investigating him. Pt admits to a Hx of bi-polar with eloy. When asked if he feels manic recently he states "pot fixes everything for me" He describes eloy as being "angry or really happy" but would not confirm that he feels this now. At one point during the interview, Pt said "I need to only be here a couple days so I can get revenge" when asked to elaborate, he said "It has to be done it's a bible thing" he does not identify a target or reason for his revenge. Pt states that he has not had his Invega since his last hospitalization here, reporting that it "gave me these" as he grabs his breasts and a part of his midsection. He reports that "there are several injections we offer here, just need to find one that is non-weight gaining" Pt states he lives at both [facility] and [facility] alone but sometimes a girlfri end stays with him and that he has 2 girlfriends and they don't mind, but refuses to provide names. It is noted that Pt is sweating profusely from his head while speaking to PSA, and has very poor eye contact. Pt denies SI/HI and when asked about hallucinations, he states "its telepathy and I hear the voices of my baby mommas" He then goes on a tangent about a CPS investigation from a decade ago. Pt states "I am racist against white people and you will never change that" VITAL SIGNS: See below. NEW TEST RESULTS: . CURRENT MEDICATIONS: See below. MENTAL STATUS EXAMINATION: Patient is a 30-year old Single, Unemployed/Disabled, Male who was brought to the ED on a 9.45 transport status and it was reported that he was making bomb threats around the city. Speech: Is fluid, conversant, normal rate, tone and volume Language skills are intact Thought processes including: delusional Thought content: denies depression and anxiety. Denies suicidal/homicidal ideation, planning or intent. Abstract reasoning, and computation: fair Description of associations: denies, none observed Description of abnormal or psychotic thoughts: denies, observed to be paranoid, grandiose, delusional Judgment: poor Insight: poor Orientation: alert and oriented to person, place, time and situation Recent and remote memory: intact Attention span and concentration: good Language: expansive Fund of knowledge: average Mood: Euthymic Mood " I am feeling good" Affect: reactive DIAGNOSES: Bipolar I, Recurrent, Manic ASSESSMENT: "I took the Invega like I told God that I would do, are you going to let me out?" Patient is observed in the hallways talking to himself, although not agitated now, there were earlier reports that he was aggressive and had aggressive stance/posture. He continues to be mildly grandiose and delusional. He is not stable for discharge today. MANAGEMENT PLAN: Continue all medications - Discharge on Thursday TIME SPENT: 25 minutes. Vital Signs Vital Signs Date Time Temp Pulse Resp B/P (MAP) Pulse Ox O2 Delivery O2 Flow Rate FiO2 05/02/21 10:09 129/68 05/01/21 18:40 98.7 92 16 04/30/21 07:22 99 Room Air Current Medications Current Medications Medications (Trade) Dose Ordered Sig/Michael Route PRN Reason Start Time Stop Time Status Last Admin Dose Admin Acetaminophen (Tylenol Tab) 650 mg Q6HP PRN PO HEADACHE or MILD DISCOMFORT 04/26/21 18:50 05/01/21 14:07 Al Hydrox/Mg Hydrox/Simethicone (Mylanta) 30 ml Q4HP PRN PO HEARTBURN/INDIGESTION 04/26/21 18:50 05/01/21 20:06 Albuterol Sulfate (Proventil, Ventolin Hfa) 2 puff Q6HP PRN INH SHORTNESS OF BREATH 04/26/21 20:05 05/01/21 19:38 Fluticasone Propionate (Flovent Hfa 110 Mcg) 2 puff RBID INH 04/27/21 20:00 05/02/21 07:51 Home Med (Med Rec Complete!) ASDIRECTED XX 04/26/21 19:05 04/26/21 19:03 DC Lamotrigine (LaMICtal) 25 mg DAILY PO 04/27/21 09:00 04/30/21 08:42 DC 04/30/21 08:34 Lisinopril (Prinivil) 20 mg DAILY PO 04/27/21 09:00 05/02/21 10:09 Lurasidone HCl (Latuda) 20 mg DAILY@0800 PO 04/27/21 08:00 05/01/21 12:07 DC 05/01/21 09:09 Lurasidone HCl (Latuda) 40 mg DAILY@08 PO 05/02/21 08:00 05/02/21 07:46 Magnesium Hydroxide (Milk Of Magnesia) 30 ml DAILYPRN PRN PO CONSTIPATION 04/26/21 18:50 Montelukast Sodium (Singulair) 10 mg DAILY PO 04/27/21 09:00 05/02/21 10:09 Nicotine (Nicoderm Cq 21mg) 1 patch DAILYPRN PRN TD NICOTINE WITHDRAWAL 04/29/21 08:30 05/01/21 17:30 Olanzapine (ZyPREXA ZYDIS) 5 mg Q4HP PRN PO ANXIETY/AGITATION 04/26/21 20:50 05/01/21 17:32 Olanzapine (ZyPREXA) 5 mg Q4HP PRN PO ANXIETY/AGITATION 04/26/21 18:50 Cancel Omeprazole (PriLOSEC) 40 mg DAILY PO 04/27/21 09:00 05/02/21 10:06 Paliperidone (Invega) 1.5 mg QAM PO 04/29/21 09:00 04/28/21 22:19 DC Paliperidone (Invega) 3 mg QAM PO 04/29/21 09:00 05/02/21 10:13 Trazodone HCl (Desyrel) 50 mg QHSP PRN PO INSOMNIA 04/26/21 18:50 Vitamin D (Vitamin D) 1,000 units DAILY PO 04/27/21 09:00 05/02/21 10:07 Allergies Coded Allergies: cariprazine (Verified Allergy, Intermediate, rash wheezing, 07/14/19) SEASONAL ALLERGIES (Verified Allergy, Mild, SINUS ISSUES, 03/09/21) paliperidone (Verified Adverse Reaction, Mild, *SEE NOTE, 04/28/21) Pt. reports that he has the side effect/adverse reaction of weight gain. Pt. denies any allergies associated with previously receiving this medication. RAKEL GOODWIN NP May 02, 2021 10:31
[2021-05-02] MEDS: OLANZapine ORAL DISINTEGRATING TAB 5MG PO PRN (16:18)
[2021-05-02] MEDS: ALBUTEROL 90 MCG/ACT 8GM HFA INHALER INH PRN (16:18)
[2021-05-02 17:36] VITALS: BP 146/65
[2021-05-02] MEDS: MAALOX 30 ML SUSP *UDC PO PRN (20:53)
[2021-05-02] MEDS: traZODone 50 MG TAB PO PRN (23:44)
[2021-05-03] MEDS: FLUTICASONE HFA 110 MCG 12 GM INHALER (FLOVENT) INH SCH ×3 (08:00→22:15)
[2021-05-03] MEDS: MONTELUKAST 10 MG TAB PO SCH (09:19)
[2021-05-03] MEDS: PALIPERIDONE 3 MG ER TAB (INVEGA) PO SCH (09:19)
[2021-05-03] MEDS: LURASIDONE HCL 40 MG TAB (LATUDA) PO SCH (09:19)
[2021-05-03] MEDS: OMEPRAZOLE 20 MG CAP PO SCH (09:19)
[2021-05-03] MEDS: VITAMIN D 1,000 INTERNATIONAL UNITS TABLET PO SCH (09:20)
[2021-05-03] MEDS: MAALOX 30 ML SUSP *UDC PO PRN ×2 (10:21→22:19)
[2021-05-03] MEDS: ALBUTEROL 90 MCG/ACT 8GM HFA INHALER INH PRN ×2 (10:40→19:45)
[2021-05-03] MEDS ORDERED: BENZTROPINE 0.5 MG TAB PO ONE (11:00)
--- NOTE | 2021-05-03 12:06 | MHIPNPDOC ---
[facility] Progress Note Progress Note DDATE OF SERVICE: 05/03/21 HISTORY: Patient is a 30-year old Single, Unemployed/Disabled, Male who reports that his brother brought him here, states I dont know why I was brought here, I dont need to be here. Patient is very grandiose, paranoid, and bizarre. He was brought to the ED on a 9.45 transport status and it was reported that he was making bomb threats around the city. PER ED REPORT: Pt is here on a 9.45 issued by Farooq [facility] ENP based on information provided by Detective Giron. Pt was in his hotel room arguing with himself and refusing to let police enter. He is under investigation for making several bomb threats around the city today (although Pt denies) the police are rather certain the threats have come from him. He has been "menacing" and arguing with people all around the city and having orthodox and paranoid delusions. Patient states, "clueless, for crimes I didn't do when asked what brings him in today. He is very unorganized in his thoughts and is fixated on "staying for a couple days then leaving [place]" Pt is vague when asked for details on what crimes he thinks the police are investigating, he refuses to give details. When asked about bomb threats, he denies but quickly changes subject and at one point asked if "the investigation would be expunged" if he was admitted to mental health. Pt is paranoid about the police investigating him. Pt admits to a Hx of bi-polar with eloy. When asked if he feels manic recently he states "pot fixes everything for me" He describes eloy as being "angry or really happy" but would not confirm that he feels this now. At one point during the interview, Pt said "I need to only be here a couple days so I can get revenge" when asked to elaborate, he said "It has to be done it's a bible thing" he does not identify a target or reason for his revenge. Pt states that he has not had his Invega since his last hospitalization here, reporting that it "gave me these" as he grabs his breasts and a part of his midsection. He reports that "there are several injections we offer here, just need to find one that is non-weight gaining" Pt states he lives at both [facility] and [facility] alone but sometimes a girlfri end stays with him and that he has 2 girlfriends and they don't mind, but refuses to provide names. It is noted that Pt is sweating profusely from his head while speaking to PSA, and has very poor eye contact. Pt denies SI/HI and when asked about hallucinations, he states "its telepathy and I hear the voices of my baby mommas" He then goes on a tangent about a CPS investigation from a decade ago. Pt states "I am racist against white people and you will never change that" VITAL SIGNS: See below. NEW TEST RESULTS: . CURRENT MEDICATIONS: See below. MENTAL STATUS EXAMINATION: Patient is a 30-year old Single, Unemployed/Disabled, Male who was brought to the ED on a 9.45 transport status and it was reported that he was making bomb threats around the city. Speech: Is fluid, conversant, normal rate, tone and volume Language skills are intact Thought processes including: mild delusional statements Thought content: denies depression and anxiety. Denies suicidal/homicidal ideation, planning or intent. Abstract reasoning, and computation: fair Description of associations: denies, none observed Description of abnormal or psychotic thoughts: denies, observed to be paranoid, grandiose, delusional Judgment: poor Insight: poor Orientation: alert and oriented to person, place, time and situation Recent and remote memory: intact Attention span and concentration: good Language: expansive Fund of knowledge: average Mood: Euthymic Mood " I am feeling good" Affect: reactive DIAGNOSES: Bipolar I, Recurrent, Manic ASSESSMENT: Patient has improved linear thinking but continues to make mild delusional and or nonsensical statements, "I don't want to do those things because I am a Spiritism, I may have another child, I want to be able to live near schools. I know I want to leave here because I need food, I digest Food better." Patient denies depression, anxiety, or suicidal thinking. He has been compliant with medications, social with peers and in the milieu. He is observed very superficial and disengaged. He is not appropriate for groups due to his odd beliefs and nonsensical statements. MANAGEMENT PLAN: Continue all medications - Discharge on Thursday TIME SPENT: 25 minutes. Vital Signs Vital Signs Date Time Temp Pulse Resp B/P (MAP) Pulse Ox O2 Delivery O2 Flow Rate FiO2 05/03/21 09:20 129/68 05/02/21 17:36 97.6 86 14 04/30/21 07:22 99 Room Air Current Medications Current Medications Medications (Trade) Dose Ordered Sig/Michael Route PRN Reason Start Time Stop Time Status Last Admin Dose Admin Acetaminophen (Tylenol Tab) 650 mg Q6HP PRN PO HEADACHE or MILD DISCOMFORT 04/26/21 18:50 05/02/21 19:48 Al Hydrox/Mg Hydrox/Simethicone (Mylanta) 30 ml Q4HP PRN PO HEARTBURN/INDIGESTION 04/26/21 18:50 05/03/21 10:21 Albuterol Sulfate (Proventil, Ventolin Hfa) 2 puff Q6HP PRN INH SHORTNESS OF BREATH 04/26/21 20:05 05/03/21 10:40 Benztropine Mesylate (Cogentin) 0.5 mg BIDP PRN PO EPS 05/03/21 15:00 Fluticasone Propionate (Flovent Hfa 110 Mcg) 2 puff RBID INH 04/27/21 20:00 05/02/21 19:48 Home Med (Med Rec Complete!) ASDIRECTED XX 04/26/21 19:05 04/26/21 19:03 DC Lamotrigine (LaMICtal) 25 mg DAILY PO 04/27/21 09:00 04/30/21 08:42 DC 04/30/21 08:34 Lisinopril (Prinivil) 20 mg DAILY PO 04/27/21 09:00 05/03/21 09:20 Lurasidone HCl (Latuda) 20 mg DAILY@0800 PO 04/27/21 08:00 05/01/21 12:07 DC 05/01/21 09:09 Lurasidone HCl (Latuda) 40 mg DAILY@08 PO 05/02/21 08:00 05/03/21 09:19 Magnesium Hydroxide (Milk Of Magnesia) 30 ml DAILYPRN PRN PO CONSTIPATION 04/26/21 18:50 Montelukast Sodium (Singulair) 10 mg DAILY PO 04/27/21 09:00 05/03/21 09:19 Nicotine (Nicoderm Cq 21mg) 1 patch DAILYPRN PRN TD NICOTINE WITHDRAWAL 04/29/21 08:30 05/01/21 17:30 Olanzapine (ZyPREXA ZYDIS) 5 mg Q4HP PRN PO ANXIETY/AGITATION 04/26/21 20:50 05/02/21 16:18 Olanzapine (ZyPREXA) 5 mg Q4HP PRN PO ANXIETY/AGITATION 04/26/21 18:50 Cancel Omeprazole (PriLOSEC) 40 mg DAILY PO 04/27/21 09:00 05/03/21 09:19 Paliperidone (Invega) 1.5 mg QAM PO 04/29/21 09:00 04/28/21 22:19 DC Paliperidone (Invega) 3 mg QAM PO 04/29/21 09:00 05/03/21 09:19 Trazodone HCl (Desyrel) 50 mg QHSP PRN PO INSOMNIA 04/26/21 18:50 05/02/21 23:44 Vitamin D (Vitamin D) 1,000 units DAILY PO 04/27/21 09:00 05/03/21 09:20 Allergies Coded Allergies: cariprazine (Verified Allergy, Intermediate, rash wheezing, 07/14/19) SEASONAL ALLERGIES (Verified Allergy, Mild, SINUS ISSUES, 03/09/21) paliperidone (Verified Adverse Reaction, Mild, *SEE NOTE, 04/28/21) Pt. reports that he has the side effect/adverse reaction of weight gain. Pt. denies any allergies associated with previously receiving this medication. RAKEL GOODWIN NP May 03, 2021 12:06
[2021-05-03 18:23] VITALS: BP 121/69
[2021-05-03] MEDS: ACETAMINOPHEN TAB 650MG DOSE (2X325MG) PO PRN (19:45)
[2021-05-03] MEDS: traZODone 50 MG TAB PO PRN (22:15)
[2021-05-04 06:00] VITALS: BP 121/69
[2021-05-04] MEDS: FLUTICASONE HFA 110 MCG 12 GM INHALER (FLOVENT) INH SCH ×2 (08:44→20:39)
[2021-05-04] MEDS: LURASIDONE HCL 40 MG TAB (LATUDA) PO SCH (08:44)
[2021-05-04] MEDS: MONTELUKAST 10 MG TAB PO SCH (08:45)
[2021-05-04] MEDS: OMEPRAZOLE 20 MG CAP PO SCH (08:45)
[2021-05-04] MEDS: VITAMIN D 1,000 INTERNATIONAL UNITS TABLET PO SCH (08:45)
[2021-05-04] MEDS: ALBUTEROL 90 MCG/ACT 8GM HFA INHALER INH PRN (10:40)
[2021-05-04] MEDS: NICOTINE 21MG/24HR 1 EA TRANSDERMAL TD PRN (10:40)
[2021-05-04 16:55] VITALS: BP 132/60
[2021-05-04] MEDS: BENZTROPINE 0.5 MG TAB PO PRN (17:50)
[2021-05-04] MEDS: MAALOX 30 ML SUSP *UDC PO PRN (20:39)
[2021-05-04] MEDS: ACETAMINOPHEN TAB 650MG DOSE (2X325MG) PO PRN (20:41)
[2021-05-04] MEDS: traZODone 50 MG TAB PO PRN (23:59)
[2021-05-05] MEDS: MAALOX 30 ML SUSP *UDC PO PRN ×4 (06:02→22:36)
[2021-05-05 07:01] VITALS: BP 132/73
[2021-05-05] MEDS: MONTELUKAST 10 MG TAB PO SCH (08:36)
[2021-05-05] MEDS: FLUTICASONE HFA 110 MCG 12 GM INHALER (FLOVENT) INH SCH ×2 (08:36→21:17)
[2021-05-05] MEDS: VITAMIN D 1,000 INTERNATIONAL UNITS TABLET PO SCH (08:36)
[2021-05-05] MEDS: OMEPRAZOLE 20 MG CAP PO SCH (08:37)
[2021-05-05] MEDS: LURASIDONE HCL 40 MG TAB (LATUDA) PO SCH (08:37)
[2021-05-05] MEDS ORDERED: PALIPERIDONE PALMITATE 156MG/1ML INJ(INVEGA)(FREE PSY INPT ONLY) IM ONE (09:00)
[2021-05-05] MEDS: BENZTROPINE 0.5 MG TAB PO PRN (10:54)
[2021-05-05] MEDS: ALBUTEROL 90 MCG/ACT 8GM HFA INHALER INH PRN (18:47)
[2021-05-05] MEDS: traZODone 50 MG TAB PO PRN (21:51)
[2021-05-05] MEDS: ACETAMINOPHEN TAB 650MG DOSE (2X325MG) PO PRN (21:52)
[2021-05-06] MEDS: FLUTICASONE HFA 110 MCG 12 GM INHALER (FLOVENT) INH SCH ×2 (08:59→20:23)
[2021-05-06] MEDS: LURASIDONE HCL 40 MG TAB (LATUDA) PO SCH (08:59)
[2021-05-06] MEDS: OMEPRAZOLE 20 MG CAP PO SCH (09:00)
[2021-05-06] MEDS: MONTELUKAST 10 MG TAB PO SCH (09:00)
[2021-05-06] MEDS: VITAMIN D 1,000 INTERNATIONAL UNITS TABLET PO SCH (09:00)
[2021-05-06] MEDS: BENZTROPINE 0.5 MG TAB PO PRN ×2 (09:02→15:37)
--- NOTE | 2021-05-06 10:50 | MHIPNPDOC ---
[facility] Progress Note Progress Note DATE OF SERVICE: 05/06/21 HISTORY: Patient is a 30-year old Single, Unemployed/Disabled, Male who reports that his brother brought him here, states I dont know why I w as brought here, I dont need to be here. Patient is very grandiose, paranoid, and bizarre. He was brought to the ED on a 9.45 transport status and it was reported that he was making bomb threats around the city. PER ED REPORT: Pt is here on a 9.45 issued by Farooq Kc ENP based on information provided by Detective Giron. Pt was in his hotel room arguing with himself and refusing to let police enter. He is under investigation for making several bomb threats around the city today (although Pt denies) the police are rather certain the threats have come from him. He has been "menacing" and arguing with people all around the city and having tenriism and paranoid delusions. Patient states, "clueless, for crimes I didn't do when asked what brings him in today. He is very unorganized in his thoughts and is fixated on "staying for a couple days then leaving [place]" Pt is vague when asked for details on what crimes he thinks the police are investigating, he refuses to give details. When asked about bomb threats, he denies but quickly changes subject and at one point asked if "the investigation would be expunged" if he was admitted to mental health. Pt is paranoid about the police investigating him. Pt admits to a Hx of bi-polar with eloy. When asked if he feels manic recently he states "pot fixes everything for me" He describes eloy as being "angry or really happy" but would not confirm that he feels this now. At one point during the interview, Pt said "I need to only be here a couple days so I can get revenge" when asked to elaborate, he said "It has to be done it's a bible thing" he does not identify a target or reason for his revenge. Pt states that he has not had his Invega since his last hospitalization here, reporting that it "gave me these" as he grabs his breasts and a part of his midsection. He reports that "there are several injections we offer here, just need to find one that is non-weight gaining" Pt states he lives at both [facility] and [facility] alone but sometimes a girlfriend stays with him and that he has 2 girlfriends and they don't mind, but refuses to provide names. It is noted that Pt is sweating profusely from his head while speaking to PSA, and has very poor eye contact. Pt denies SI/HI and when asked about hallucinations, he states "its telepathy and I hear the voices of my baby mommas" He then goes on a tangent about a CPS investigation from a decade ago. Pt states "I am racist against white people and you will never change that" VITAL SIGNS: See below. NEW TEST RESULTS: . CURRENT MEDICATIONS: See below. MENTAL STATUS EXAMINATION: Patient is a 30-year old Single, Unemployed/Disabled, Male who was brought to the ED on a 9.45 transport status and it was reported that he was making bomb threats around the city. Speech: Is fluid, conversant, normal rate, tone and volume Language skills are intact Thought processes including: linear and organized Thought content: denies depression and anxiety. Denies suicidal/homicidal ideation, planning or intent. Abstract reasoning, and computation: fair Description of associations: denies, none observed Description of abnormal or psychotic thoughts: denies, no paranoia, delusions or nonsensical statements Judgment: improved Insight: improved Orientation: alert and oriented to person, place, time and situation Recent and remote memory: intact Attention span and concentration: good Language: expansive Fund of knowledge: average Mood: Euthymic Mood " I am good" Affect: reactive DIAGNOSES: Bipolar I, Recurrent, Manic ASSESSMENT: Patient is improving. He states, " I am better than I was before. I feel better" He did state that he is in a relationship with a female peer, I encouraged patient to make friends but not any significant relationships with anyone who is admitted. Patient states that he and she was "friends" According to Staff, patient has been cooperative on the unit, social with peers and pleasant. He is not observed with current delusional thinking. He is not hypomanic, has less disorganized thinking. He appears to be fairly stable and can be discharged tomorrow. Patient wants to go to [facility] for housing, on this day, [facility] is closed MANAGEMENT PLAN: Continue all medications - discharge on Thursday. TIME SPENT: 25 minutes. Vital Signs Vital Signs Date Time Temp Pulse Resp B/P (MAP) Pulse Ox O2 Delivery O2 Flow Rate FiO2 05/06/21 08:59 132/73 05/05/21 07:01 98.0 95 18 98 Room Air Current Medications Current Medications Medications (Trade) Dose Ordered Sig/Michael Route PRN Reason Start Time Stop Time Status Last Admin Dose Admin Acetaminophen (Tylenol Tab) 650 mg Q6HP PRN PO HEADACHE or MILD DISCOMFORT 04/26/21 18:50 05/05/21 21:52 Al Hydrox/Mg Hydrox/Simethicone (Mylanta) 30 ml Q4HP PRN PO HEARTBURN/INDIGESTION 04/26/21 18:50 05/05/21 22:36 Albuterol Sulfate (Proventil, Ventolin Hfa) 2 puff Q6HP PRN INH SHORTNESS OF BREATH 04/26/21 20:05 05/05/21 18:47 Benztropine Mesylate (Cogentin) 0.5 mg BIDP PRN PO EPS 05/03/21 15:00 05/06/21 09:02 Fluticasone Propionate (Flovent Hfa 110 Mcg) 2 puff RBID INH 04/27/21 20:00 05/06/21 08:59 Home Med (Med Rec Complete!) ASDIRECTED XX 04/26/21 19:05 04/26/21 19:03 DC Lamotrigine (LaMICtal) 25 mg DAILY PO 04/27/21 09:00 04/30/21 08:42 DC 04/30/21 08:34 Lisinopril (Prinivil) 20 mg DAILY PO 04/27/21 09:00 05/06/21 08:59 Lurasidone HCl (Latuda) 20 mg DAILY@0800 PO 04/27/21 08:00 05/01/21 12:07 DC 05/01/21 09:09 Lurasidone HCl (Latuda) 40 mg DAILY@08 PO 05/02/21 08:00 05/06/21 08:59 Magnesium Hydroxide (Milk Of Magnesia) 30 ml DAILYPRN PRN PO CONSTIPATION 04/26/21 18:50 Montelukast Sodium (Singulair) 10 mg DAILY PO 04/27/21 09:00 05/06/21 09:00 Nicotine (Nicoderm Cq 21mg) 1 patch DAILYPRN PRN TD NICOTINE WITHDRAWAL 04/29/21 08:30 05/04/21 10:40 Olanzapine (ZyPREXA ZYDIS) 5 mg Q4HP PRN PO ANXIETY/AGITATION 04/26/21 20:50 05/02/21 16:18 Olanzapine (ZyPREXA) 5 mg Q4HP PRN PO ANXIETY/AGITATION 04/26/21 18:50 Cancel Omeprazole (PriLOSEC) 40 mg DAILY PO 04/27/21 09:00 05/06/21 09:00 Paliperidone (Invega) 1.5 mg QAM PO 04/29/21 09:00 04/28/21 22:19 DC Paliperidone (Invega) 3 mg QAM PO 04/29/21 09:00 05/03/21 11:59 DC 05/03/21 09:19 Trazodone HCl (Desyrel) 50 mg QHSP PRN PO INSOMNIA 04/26/21 18:50 05/05/21 21:51 Vitamin D (Vitamin D) 1,000 units DAILY PO 04/27/21 09:00 05/06/21 09:00 Allergies Coded Allergies: cariprazine (Verified Allergy, Intermediate, rash wheezing, 07/14/19) SEASONAL ALLERGIES (Verified Allergy, Mild, SINUS ISSUES, 03/09/21) paliperidone (Verified Adverse Reaction, Mild, *SEE NOTE, 04/28/21) Pt. reports that he has the side effect/adverse reaction of weight gain. Pt. denies any allergies associated with previously receiving this medication. RAKEL GOODWIN NP May 06, 2021 10:05
[2021-05-06] MEDS: ALBUTEROL 90 MCG/ACT 8GM HFA INHALER INH PRN (11:06)
[2021-05-06] MEDS: MAALOX 30 ML SUSP *UDC PO PRN ×2 (11:06→20:24)
[2021-05-06] MEDS: ACETAMINOPHEN TAB 650MG DOSE (2X325MG) PO PRN (11:08)
[2021-05-06] MEDS: OLANZapine ORAL DISINTEGRATING TAB 5MG PO PRN (20:24)
[2021-05-06] MEDS: traZODone 50 MG TAB PO PRN (20:24)
[2021-05-07 06:50] VITALS: BP 143/78
[2021-05-07 09:04] VITALS: BP 143/78
[2021-05-07] MEDS: FLUTICASONE HFA 110 MCG 12 GM INHALER (FLOVENT) INH SCH (09:04)
[2021-05-07] MEDS: VITAMIN D 1,000 INTERNATIONAL UNITS TABLET PO SCH (09:04)
[2021-05-07] MEDS: MONTELUKAST 10 MG TAB PO SCH (09:04)
[2021-05-07] MEDS: OMEPRAZOLE 20 MG CAP PO SCH (09:04)
[2021-05-07] MEDS: LURASIDONE HCL 40 MG TAB (LATUDA) PO SCH (09:04)
[2021-05-07] MEDS: BENZTROPINE 0.5 MG TAB PO PRN (09:43)
[2021-05-07] MEDS: OLANZapine ORAL DISINTEGRATING TAB 5MG PO PRN (09:43)
[2021-05-07] MEDS ORDERED: OMEP-221 PO (09:54)
[2021-05-07] MEDS ORDERED: ARNU1INH INH (09:54)
[2021-05-07] MEDS ORDERED: LATU40TA PO (09:54)
[2021-05-07] MEDS ORDERED: BENZ0.5T23 PO (09:54)
[2021-05-07] MEDS ORDERED: MONT10TA10 PO (09:54)
[2021-05-07] MEDS ORDERED: ALBU8.5H PO (09:54)
[2021-05-07] MEDS ORDERED: LISI20TA33 PO (09:54)
[2021-05-07] MEDS ORDERED: NICO21PAT TD (09:54)
[2021-05-07] MEDS ORDERED: INVE234I IM (09:57)
--- NOTE | 2021-05-07 11:27 | MHDSPDOC ---
[facility] Discharge Summary Discharge Summary DATE OF ADMISSION: Apr 26, 2021 at 18:49 DATE OF DISCHARGE: May 07, 2021 at 1111 DISCHARGE DIAGNOSES: Bipolar I, Recurrent, Manic REASON FOR ADMISSION: Patient is a 30-year old Single, Unemployed/Disabled, Male who reports that his brother brought him here, states I dont know why I was brought here, I dont need to be here. Patient is very grandiose, paranoid, and bizarre. He was brought to the ED on a 9.45 transport status and it was reported that he was making bomb threats around the city. PER ED REPORT: Pt is here on a 9.45 issued by [facility] ENP based on information provided by Detective Giron. Pt was in his hotel room arguing with himself and refusing to let police enter. He is under investigation for making several bomb threats around the city today (although Pt denies) the police are rather certain the threats have come from him. He has been "menacing" and arguing with people all around the city and having yazidi and paranoid delusions. Patient states, "clueless, for crimes I didn't do when asked what brings him in today. He is very unorganized in his thoughts and is fixated on "staying for a couple days then leaving [place]" Pt is vague when asked for details on what crimes he thinks the police are investigating, he refuses to give details. When asked about bomb threats, he denies but quickly changes subject and at one point asked if "the investigation would be expunged" if he was admitted to mental health. Pt is paranoid about the police investigating him. Pt admits to a Hx of bi-polar with eloy. When asked if he feels manic recently he states "pot fixes everything for me" He describes eloy as being "angry or really happy" but would not confirm that he feels this now. At one point during the interview, Pt said "I need to only be here a couple days so I can get revenge" when asked to elaborate, he said "It has to be done it's a bible thing" he does not identify a target or reason for his revenge. Pt states that he has not had his Invega since his last hospitalization here, reporting that it "gave me these" as he grabs his breasts and a part of his midsection. He reports that "there are several inj ections we offer here, just need to find one that is non-weight gaining" Pt states he lives at both [facility] and [facility] alone but sometimes a girlfriend stays with him and that he has 2 girlfriends and they don't mind, but refuses to provide names. It is noted that Pt is sweating profusely from his head while speaking to PSA, and has very poor eye contact. Pt denies SI/HI and when asked about hallucinations, he states "its telepathy and I hear the voices of my baby mommas" He then goes on a tangent about a CPS investigation from a decade ago. Pt states "I am racist against white people and you will never change that" VITAL SIGNS: See below. CONSULTANTS INVOLVED: See Medical H + P by Hospitalist TREATMENT AND PROGRESS ON THE UNIT: Patient was admitted to the [facility] on a legal status he was afforded the following treatment modalities: 1) Individual Therapy 2) Group Therapy 3) Medication Management 4) Milieu Therapy 5) Safe Environment HOSPITAL COURSE: Kyle was admitted to [facility] on a legal status and was started on his home medications. Patient patient was initially quite delusional, paranoid, and bizarre. His psychotic symptoms were quite evident and that he made nonsensical statements often initially in his admission. It was difficult to convince him to agree to a long-acting injectable. He finally agreed to take the Invega Sustenna which he had been prescribed on previously his last known injection was in December. Patient's Latuda was increased to 40 mg daily. Lamictal was discontinued. He continued to have somewhat threatening and agitated demeanor and posturing early in his admission. Since his Invega Sustenna injection patient has improved greatly, social with peers pleasant and cooperative. And has improved insight and judgment. He still is mildly delusional, but his delusional statements do not make him a danger to himself or others. In today's interview he made mention of being in a relationship with another peer. I reinforced with the patient that this is prohibited to behaviors, he stated "I promise I will do it on the next time I'm here. " DISCHARGE ASSESSMENT: In today's interview, patient is alert and oriented, pts dress is appropriate. Hygiene and grooming is well-kempt. Denies depression and anxiety. Denies suicidal and homicidal ideation, planning or intent. Denies and is not observed with eloy, psychotic symptoms of delusions, bizarre thinking, obsessions, paranoia, ruminations illogical thoughts, flight of ideas or having poor insight and judgement. Patient has normal mentation, declines further hospitalization on a voluntary status and meets criteria for discharge today. MENTAL STATUS EXAMINATION ON DISCHARGE: Patient is a 30-year old Single, Unemployed/Disabled, Male who was brought to the ED after making bomb threats and paranoia and bizarre statements. Speech: Is fluid, conversant, normal rate, tone and volume Language skills are intact Thought processes including: linear and goal oriented Thought content: denies depression and anxiety. Denies suicidal/homicidal ideation, planning or intent. Abstract reasoning, and computation: fair Description of associations: denies, none observed Description of abnormal or psychotic thoughts: denies, none observed. Judgment: fair Insight: fair Orientation: alert and oriented to person, place, time and situation Recent and remote memory: intact Attention span and concentration: good Language: expansive Fund of knowledge: average Mood: Euthymic Mood Affect: reactive MEDICATIONS ON DISCHARGE: See Medication Reconciliation PLAN/FOLLOWUP ARRANGEMENTS: [facility] The amount of time spent in the coordination of care for this patient was approximately 25 minutes. ETOH/Disorder Med Rx ETOH/DRUG DISORDER RX: Offrd @ d/c & pt refused Vital Signs/I&Os Vital Signs Date Time Temp Pulse Resp B/P (MAP) Pulse Ox O2 Delivery O2 Flow Rate FiO2 05/07/21 09:04 143/78 05/07/21 06:50 96.9 89 18 98 Room Air Medications Scheduled Cholecalciferol (Vitamin D3) (Vitamin D3) 1,000 Unit Tablet, 1,000 MG PO DAILY, (Reported) Fluticasone Furoate (Arnuity Ellipta) 100 Mcg Blst.w.dev, 1 PUFF INH DAILY for Allergies, #1 Lisinopril (Lisinopril) 20 Mg Tablet, 20 MG PO DAILY for Blood Pressure, #7 Lurasidone Hydrochloride (Latuda) 40 Mg Tablet, 40 MG PO DAILY@08 for Mood, #7 Montelukast Sodium (Montelukast Sodium) 10 Mg Tablet, 10 MG PO DAILY for Asthma, #7 Omeprazole (Omeprazole) 40 Mg Capsule.dr, 40 MG PO DAILY for Reflux, #7 Paliperidone Palmitate (Invega Sustenna) 234 Mg/1.5 Ml Syringe, 1 SYRINGE IM Q30D for Mood, #1 Nest dose due 05/29/21 Scheduled PRN Albuterol Sulfate (Albuterol Sulfate Hfa) 8.5 Gm Hfa.aer.ad, 2 PUFFS PO Q4-6HP PRN for SHORTNESS OF BREATH, #1 Benztropine Mesylate (Benztropine Mesylate) 0.5 Mg Tablet, 0.5 MG PO BIDP PRN for EPS, #14 Nicotine (Nicotine Patch) 21 Mg Patch.td24, 1 PATCH TD DAILYPRN PRN for NICOTINE WITHDRAWAL, #7 Allergies Coded Allergies: cariprazine (Verified Allergy, Intermediate, rash wheezing, 07/14/19) SEASONAL ALLERGIES (Verified Allergy, Mild, SINUS ISSUES, 03/09/21) paliperidone (Verified Adverse Reaction, Mild, *SEE NOTE, 04/28/21) Pt. reports that he has the side effect/adverse reaction of weight gain. Pt. denies any allergies associated with previously receiving this medication. RAKEL GOODWIN NP May 07, 2021 11:16
== END 2021-05-07 11:33 | disposition home or self-care (01) | DRG 753 ==
LOC: M ED 16:15 → M ED INP 18:49 → M PSY 21:40
PROVIDERS: ADMIT Psychiatry & Neurology Psychiatry; ATTEND Psychiatry & Neurology Psychiatry
DX: F31.5 Bipolar disorder, current episode depressed, severe, with psychotic features (principal); F79 Unspecified intellectual disabilities; I10 Essential (primary) hypertension; Z79.899 Other long term (current) drug therapy; Z88.8 Allergy status to other drugs, medicaments and biological substances; J45.909 Unspecified asthma, uncomplicated; E55.9 Vitamin D deficiency, unspecified

== ENCOUNTER → 2022-03-24 | Outpatient (CLI) | payer OTHER ==
[~2022-03-24] MED LIST changes: +ALBU8.5H PO; +BENZ0.5T23 PO; -D31000TA2 PO; +LATU40TA2 PO; -MONT10TA10 PO; +MONT10TA97 PO; +NICO21PAT TD; +OMEP40CA5 PO; +VITA100093 PO
[2022-03-24 13:32] LABS: BASO # 0.1 10^3/uL (0.0-0.2); BASO % 0.6 % (0.0-1.0); EOS # 0.9 10^3/uL (0.0-0.5); EOS % 9.2 % (0.0-3.0); HEMATOCRIT 44.2 % (42.0-52.0); HEMOGLOBIN 14.5 g/dl (13.5-17.5); LYMPH # 3.3 10^3/uL (1.5-5.0); LYMPH % 33.1 % (24.0-44.0); MEAN CORPUSCULAR HEMOGLOBIN 28.1 pg (27.0-33.0); MEAN CORPUSCULAR HGB CONC 32.8 g/dl (32.0-36.5); MEAN CORPUSCULAR VOLUME 85.7 fl (80.0-96.0); MONO # 0.7 10^3/uL (0.0-0.8); MONO % 7.1 % (2.0-8.0); NEUTROPHILS % 49.3 % (36.0-66.0); PLATELET COUNT, AUTOMATED 368 10^3/uL (150-450); RED BLOOD COUNT 5.16 10^6/uL (4.30-6.10); WHITE BLOOD COUNT 10.1 10^3/uL (4.0-10.0)
[2022-03-24 14:04] LABS: HEMOGLOBIN A1c 5.6 %
[2022-03-24 14:17] LABS: ALBUMIN 4.1 GM/DL (3.2-5.2); ALT/SGPT 52 U/L (12-78); BILIRUBIN,DIRECT 0.1 MG/DL (0.0-0.2); BILIRUBIN,TOTAL 0.6 MG/DL (0.2-1.0); BLOOD UREA NITROGEN 8 MG/DL (7-18); CALCIUM LEVEL 10.1 MG/DL (8.5-10.1); CARBON DIOXIDE LEVEL 28 MEQ/L (21-32); CHLORIDE LEVEL 102 MEQ/L (98-107); CHOLESTEROL LEVEL 153 MG/DL (<200); CHOLESTEROL RISK RATIO 2.781 (<5); CREATININE FOR GFR 0.94 MG/DL (0.70-1.30); GLOMERULAR FILTRATION RATE > 60.0 (>60); GLUCOSE, FASTING 82 MG/DL (70-100); HDL CHOLESTEROL 55 MG/DL (>40); LDL CHOLESTEROL 54 MG/DL (<100); NON-HDL-C 98 MG/DL; PHOSPHORUS LEVEL 3.7 MG/DL (2.5-4.9); POTASSIUM SERUM 5.6 MEQ/L (3.5-5.1); SODIUM LEVEL 136 MEQ/L (136-145); TOTAL 25(OH) VITAMIN D 57.8 NG/ML (30.0-100.0); TOTAL PROTEIN 7.4 GM/DL (6.4-8.2); TRIGLYCERIDES LEVEL 219 MG/DL (<150)
== END ==
LOC: M EKG 11:38
PROVIDERS: ATTEND Registered Nurse
DX: F29 Unspecified psychosis not due to a substance or known physiological condition (principal)

== ENCOUNTER → 2022-11-26 | Outpatient (CLI) | payer OTHER ==
[~2022-11-26] MED LIST changes: +ALBU2.5V10 NEB; +ALBU6.7H6 INH; -ALBU83IN NEB; +IBUP-1022 PO; +MELO15TA28 PO; -PROV108A INH; +SILD100T
== END ==
LOC: M RAD 11:04
PROVIDERS: ATTEND Family Medicine Addiction Medicine
DX: M25.561 Pain in right knee (principal)

== ENCOUNTER 2022-11-28 10:27 | Emergency (ER) | payer OTHER ==
[~2022-11-28] VITALS: Ht 188 cm; Wt 113.0 kg
[~2022-11-28 10:27] MED LIST changes: -IBUP-1022 PO; -MELO15TA28 PO; -SILD100T
[2022-11-28] MEDS ORDERED: SILD100T (11:01)
[2022-11-28] MEDS ORDERED: IBUP-1022 PO (12:17)
[2022-11-28 12:27] VITALS: BP 129/84
[2022-11-28] MEDS ORDERED: MELO15TA28 PO (12:30)
== END 2022-11-28 12:36 | disposition home or self-care (01) ==
LOC: M ED 10:27
DX: S80.11XA Contusion of right lower leg, initial encounter (principal); F31.9 Bipolar disorder, unspecified; K21.9 Gastro-esophageal reflux disease without esophagitis; J45.909 Unspecified asthma, uncomplicated; F32.A Depression, unspecified; I10 Essential (primary) hypertension; Y92.39 Other specified sports and athletic area as the place of occurrence of the external cause; Y93.61 Activity, american tackle football; Z88.1 Allergy status to other antibiotic agents; Z88.5 Allergy status to narcotic agent; Z79.52 Long term (current) use of systemic steroids; Z79.811 Long term (current) use of aromatase inhibitors; Z79.899 Other long term (current) drug therapy

== ENCOUNTER → 2023-02-09 | Outpatient (CLI) | payer OTHER ==
[~2023-02-09] MED LIST changes: +IBUP-1022 PO; +MELO15TA28 PO; +SILD100T
== END ==
LOC: M RAD 13:12
PROVIDERS: ATTEND Family Medicine Addiction Medicine
DX: S06.9X0A Unspecified intracranial injury without loss of consciousness, initial encounter (principal); X58.XXXA Exposure to other specified factors, initial encounter; Y92.89 Other specified places as the place of occurrence of the external cause; Y93.89 Activity, other specified; Y99.8 Other external cause status

== ENCOUNTER → 2023-04-16 | Outpatient (REF) | payer OTHER ==
[~2023-04-16] MED LIST changes: +BENZ0.5T2 PO; -BENZ0.5T23 PO
[2023-04-16 18:29] LABS: ALKALINE PHOSPHATASE 66 U/L (46-116); ALT/SGPT 46 U/L (7.0-40); AST/SGOT 27 U/L (<34); BILIRUBIN,TOTAL 0.4 MG/DL (0.3-1.2); BLOOD UREA NITROGEN 12 MG/DL (9-23); CALCIUM LEVEL 8.8 MG/DL (8.5-10.1); CARBON DIOXIDE LEVEL 23 MMOL/L (20-31); CHLORIDE LEVEL 104 MMOL/L (98-107); CHOLESTEROL LEVEL 168 MG/DL (<200); CHOLESTEROL RISK RATIO 2.96 (<5); CREATININE FOR GFR 0.89 MG/DL (0.70-1.30); GLOMERULAR FILTRATION RATE > 60.0 (>60); GLUCOSE, FASTING 136 MG/DL (60-100); HDL CHOLESTEROL 56.6 MG/DL (>40); LDL CHOLESTEROL 79.4 MG/DL (<100); NON-HDL-C 111.4 MG/DL; POTASSIUM SERUM 4.2 MMOL/L (3.5-5.1); SODIUM LEVEL 137 MMOL/L (136-145); TOTAL PROTEIN 6.4 G/DL (5.7-8.2); TRIGLYCERIDES LEVEL 160 MG/DL (<150)
[2023-04-16 18:33] LABS: THYROID STIMULATING HORMONE 1.216 uIU/ML (0.55-4.78)
[2023-04-16 19:06] LABS: HEPATITIS C VIRUS ABY INDEX 0.07 INDEX (<0.8)
== END ==
LOC: M LAB REF 17:20
PROVIDERS: ATTEND Family Medicine Addiction Medicine
DX: Z68.36 Body mass index [BMI] 36.0-36.9, adult (principal)

== ENCOUNTER 2023-10-15 12:13 | Emergency (ER) | payer OTHER ==
[~2023-10-15] VITALS: Ht 190.5 cm; Wt 115.0 kg
[2023-10-15 13:51] LABS: RSV AMPLIFICATION NEGATIVE (NEGATIVE)
[2023-10-15] MEDS ORDERED: AMOX875T2 PO (14:28)
[2023-10-15 14:40] VITALS: BP 140/83; TEMP 97.8; O2SAT 100
== END 2023-10-15 14:41 | disposition home or self-care (01) ==
LOC: M ED 12:13
DX: H65.92 Unspecified nonsuppurative otitis media, left ear (principal); J45.909 Unspecified asthma, uncomplicated; K21.9 Gastro-esophageal reflux disease without esophagitis; F31.9 Bipolar disorder, unspecified; I10 Essential (primary) hypertension; F12.10 Cannabis abuse, uncomplicated; F20.9 Schizophrenia, unspecified; Z88.8 Allergy status to other drugs, medicaments and biological substances; Z79.52 Long term (current) use of systemic steroids; Z79.2 Long term (current) use of antibiotics; Z79.811 Long term (current) use of aromatase inhibitors; Z79.899 Other long term (current) drug therapy

== ENCOUNTER → 2024-03-09 | Outpatient (REF) | payer OTHER ==
[~2024-03-09] MED LIST changes: +AMOX875T2 PO
[2024-03-09 16:01] LABS: ALBUMIN 4.2 G/DL (3.2-5.2); ALKALINE PHOSPHATASE 77 U/L (46-116); ALT/SGPT 47 U/L (7.0-40); AST/SGOT 36 U/L (<34); BILIRUBIN,TOTAL 0.5 MG/DL (0.3-1.2); BLOOD UREA NITROGEN 13 MG/DL (9-23); CARBON DIOXIDE LEVEL 27 MMOL/L (20-31); CHLORIDE LEVEL 104 MMOL/L (98-107); CHOLESTEROL LEVEL 139 MG/DL (<200); CHOLESTEROL RISK RATIO 2.79 (<5); CREATININE FOR GFR 0.95 MG/DL (0.70-1.30); GLOMERULAR FILTRATION RATE > 60.0 (>60); GLUCOSE, FASTING 90 MG/DL (60-100); HDL CHOLESTEROL 49.8 MG/DL (>40); LDL CHOLESTEROL 68.6 MG/DL (<100); NON-HDL-C 89.2 MG/DL; POTASSIUM SERUM 4.7 MMOL/L (3.5-5.1); SODIUM LEVEL 137 MMOL/L (136-145); THYROID STIMULATING HORMONE 0.688 uIU/ML (0.55-4.78); TOTAL PROTEIN 6.6 G/DL (5.7-8.2); TRIGLYCERIDES LEVEL 103 MG/DL (<150)
== END ==
LOC: M LAB REF 13:13
PROVIDERS: ATTEND Family Medicine Addiction Medicine
DX: I10 Essential (primary) hypertension (principal)

== ENCOUNTER → 2024-04-27 | Outpatient (REF) | payer OTHER ==
[2024-04-27 17:24] LABS: Trichomonas vaginalis (AMP) NOT DETECTED (NEGATIVE)
[2024-04-27 17:47] LABS: GC DNA AMPLIFICATION NEGATIVE (NEGATIVE)
[2024-04-27 18:03] LABS: HIV 1&2 SCREEN NEGATIVE (NEGATIVE)
[2024-04-27 18:11] LABS: HEPATITIS C VIRUS ABY INDEX 0.13 INDEX (<0.8)
== END ==
LOC: M LAB REF 16:06
PROVIDERS: ATTEND Family Medicine Addiction Medicine
DX: Z11.3 Encounter for screening for infections with a predominantly sexual mode of transmission (principal)

== ENCOUNTER 2024-07-25 11:42 | Emergency (ER) | payer OTHER ==
[~2024-07-25] VITALS: Ht 190.5 cm; Wt 110.5 kg
[2024-07-25] MEDS ORDERED: CIPR7.5D2 AS (15:51)
[2024-07-25] MEDS ORDERED: AMOX875T2 PO (15:51)
[2024-07-25] MEDS ORDERED: CIPR0.3S37 AS (15:51)
[2024-07-25 15:56] VITALS: BP 140/90; TEMP 97.4; O2SAT 96
== END 2024-07-25 15:59 | disposition home or self-care (01) ==
LOC: M ED 11:42
DX: H65.02 Acute serous otitis media, left ear (principal); H60.92 Unspecified otitis externa, left ear; K21.9 Gastro-esophageal reflux disease without esophagitis; J45.909 Unspecified asthma, uncomplicated; I10 Essential (primary) hypertension; Z88.8 Allergy status to other drugs, medicaments and biological substances; Z91.048 Other nonmedicinal substance allergy status; Z79.52 Long term (current) use of systemic steroids; Z79.2 Long term (current) use of antibiotics; Z79.811 Long term (current) use of aromatase inhibitors; Z79.899 Other long term (current) drug therapy

== ENCOUNTER → 2025-05-31 | Outpatient (REF) | payer OTHER ==
[~2025-05-31] MED LIST changes: +CIPR0.3S37 AS; +CIPR7.5D2 AS; +LAMO-18 PO; -LAMO25TA4 PO; -ZIPR40CA11 PO; +ZIPR40CA21 PO
[2025-05-31 17:04] LABS: ALT/SGPT 27 U/L (7.0-40); AST/SGOT 32 U/L (<34); CALCIUM LEVEL 9.6 MG/DL (8.5-10.1); CARBON DIOXIDE LEVEL 27 MMOL/L (20-31); CHLORIDE LEVEL 103 MMOL/L (98-107); CHOLESTEROL LEVEL 167 MG/DL (<200); CHOLESTEROL RISK RATIO 3.38 (<5); CREATININE FOR GFR 0.99 MG/DL (0.70-1.30); GLOMERULAR FILTRATION RATE > 90.0 (>60); LDL CHOLESTEROL 88.4 MG/DL (<100); NON-HDL-C 117.6 MG/DL; POTASSIUM SERUM 4.5 MMOL/L (3.5-5.1); SODIUM LEVEL 141 MMOL/L (136-145); TRIGLYCERIDES LEVEL 146 MG/DL (<150)
[2025-05-31 17:37] LABS: HIV 1&2 SCREEN NEGATIVE (NEGATIVE)
[2025-05-31 17:45] LABS: HEPATITIS C VIRUS ABY INDEX < 0.02 INDEX (<0.8)
[2025-05-31 17:50] LABS: Trichomonas vaginalis (AMP) NOT DETECTED (NEGATIVE)
[2025-05-31 18:13] LABS: GC DNA AMPLIFICATION NEGATIVE (NEGATIVE)
== END ==
LOC: M LAB REF 16:18
PROVIDERS: ATTEND Family Medicine Addiction Medicine
DX: Z11.3 Encounter for screening for infections with a predominantly sexual mode of transmission (principal); E66.9 Obesity, unspecified

== ENCOUNTER → 2025-08-31 | Outpatient (REF) | payer OTHER ==
[~2025-08-31] MED LIST changes: -IBUP-1022; -IBUP-1022 PO; +IBUP600T42; +IBUP600T42 PO
[2025-08-31 17:54] LABS: Trichomonas vaginalis (AMP) NOT DETECTED (NEGATIVE)
[2025-08-31 18:18] LABS: GC DNA AMPLIFICATION NEGATIVE (NEGATIVE)
[2025-08-31 18:27] LABS: HIV 1&2 SCREEN NEGATIVE (NEGATIVE)
[2025-08-31 18:35] LABS: HEPATITIS C VIRUS ABY INDEX < 0.02 INDEX (<0.8)
== END ==
LOC: M LAB REF 16:17
PROVIDERS: ATTEND Family Medicine Addiction Medicine
DX: Z11.3 Encounter for screening for infections with a predominantly sexual mode of transmission (principal)